=== PATIENT | female | born 1995 | race African-American/Black ===

== ENCOUNTER 2016-03-07 21:04 | Emergency (ER) | payer OTHER ==
[2016-03-07] MEDS ORDERED: AMOXICILLIN 500 MG CAP As Ordered ONE (22:58)
[2016-03-07] MEDS ORDERED: IBUPROFEN 400 MG TAB As Ordered ONE (22:58)
--- NOTE | 2016-03-07 23:06 | EDDOCDS ---
Physician Documentation [facility] Name: Kary Stanley Age: 20 yrs Sex: Female : 1995 Arrival Date: 03/07/2016 Time: 21:04 Bed TR7 Private MD: Other - Complete Info On Cds Disposition: 03/07/16 22:56 Discharged to Home/Self Care. Impression: Streptococcal pharyngitis. - Condition is Stable. - Discharge Instructions: Salt Water Gargle, Strep Throat. - Prescriptions for Amoxicillin 500 mg Oral Capsule - take 1 capsule by ORAL route every 8 hours for 10 days; 30 tablet. - Medication Reconciliation, Work Release Form - 2 day, Local Pharmacy Hours form. - Follow up: Private Physician; When: 2 - 3 days; Reason: Recheck today's complaints, Continuance of care. - Problem is new. - Symptoms have improved. Historical: - Home Meds: 1. none - PMHx: none; - PSHx: none; - Social history: Smoking status: Patient uses tobacco products, current some day smoker. No barriers to communication noted, The patient speaks fluent Malay, Speaks appropriately for age. - Family history: No immediate family members are acutely ill. - : The pt / caregiver states he / she is not on anticoagulants. Home medication list is obtained from the patient. - Exposure Risk Screening:: None identified. 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 3 in. (160.02 cm) (R); Pain 4/10; 23:04 BP 127 / 84; Pulse 101; Resp 17; Temp 98(O); Pulse Ox 99% ; mb9 21:06 Body Mass Index 21.26 (54.43 kg, 160.02 cm) gr2 MDM: 21:56 Strep Screen, Nursing ordered. le 22:56 Amoxicillin 500 mg PO once ordered. ck7 22:56 Ibuprofen 400 mg PO once ordered. ck7 Administered Medications: 23:03 Drug: Amoxicillin 500 mg [amoxicillin 500 mg capsule (1 caps)] Route: PO; mb9 23:03 Drug: Ibuprofen 400 mg [ibuprofen 400 mg tablet (1 tabs)] Route: PO; mb9 Signatures: Cassius Treadwell, RN RN Nida Lamb FNP FNP le Kwaczala, Christopher, GENNA-C RPA-Cck7 Moises Jo RN RN mb9 MTDD
--- NOTE | 2016-03-07 23:06 | EDDOCDS ---
Nurse's Notes [facility] Name: Kary Stanley Age: 20 yrs Sex: Female : 1995 Arrival Date: 03/07/2016 Time: 21:04 Bed TR7 Private MD: Other - Complete Info On Cds Diagnosis: Streptococcal pharyngitis Presentation: 03/07 21:11 Presenting complaint: Patient states: she has had a sore throat for 2 days pain with cz swallowing saliva and food pt states tonsils are enlarged. Risk factors: Stridor is not present. Drooling is not present. Shortness of breath is not present. Cellulitis is not present. Adult Sepsis Screening: The patient does not have new or worsening altered mentation. Patient's respiratory rate is less than 22. Systolic blood pressure is greater than 100. Patient has a qSOFA score of 0- Negative Sepsis Screen. Suicide/Homicide risk assessment- the patient denies having any suicidal and/or homicidal ideations and does not present with any other emotional, behavioral or mental health complaints. Status: The patient is a dependent. Transition of care: patient was not received from another setting of care. 21:11 Acuity: ELE Level 4 cz 21:11 Method Of Arrival: Walkin/Carried/Asstd cz Triage Assessment: 21:12 General: Appears in no apparent distress. Pain: Pain currently is 10 out of 10 on a cz pain scale. HIV screening NA for this visit Offered previously. 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 none - PMHx: none; - PSHx: none; - Social history: Smoking status: Patient uses tobacco products, current some day smoker. No barriers to communication noted, The patient speaks fluent Maltese, Speaks appropriately for age. - Family history: No immediate family members are acutely ill. - : The pt / caregiver states he / she is not on anticoagulants. Home medication list is obtained from the patient. - Exposure Risk Screening:: None identified. Screenin:48 Screening information is obtained from the patient. Fall risk: No risks identified. mb9 Assistance ADL's: requires no assistance with activities of daily living. Abuse/DV Screen: The patient / caregiver reports he/she is: not in a situation that causes fear, pain or injury. Nutritional screening: No deficits noted. Advance Directives: There is no active DNR order. home support is adequate. Assessment: 22:48 General: Appears uncomfortable, Behavior is appropriate for age, cooperative, pleasant. mb9 Pain: Location: throat Pain currently is 7 out of 10 on a pain scale. EENT: Throat is reddened has enlarged tonsils. Respiratory: Airway is patent Respiratory effort is even, unlabored. Vital Signs: 21:06 BP 139 / 80; Pulse 96; Resp 18 S; Temp 98.6(O); Pulse Ox 100% on R/A; Weight 54.43 kg gr2 (R); Height 5 ft. 3 in. (160.02 cm) (R); Pain 4/10; 23:04 BP 127 / 84; Pulse 101; Resp 17; Temp 98(O); Pulse Ox 99% ; mb9 21:06 Body Mass Index 21.26 (54.43 kg, 160.02 cm) gr2 Vitals: 21:06 Log In Time: March 07, 2016 at 21:06. gr2 22:49 Strep Screen is obtained and tested: Positive. Perry DURAN aware. mb9 ED Course: 21:05 Patient visited by Awais Perez. gr2 21:05 Patient moved to Waiting gr2 21:06 Other - Complete Info On Cds is Private Physician. gr2 21:06 Patient visited by Awais Perez. gr2 21:07 Patient moved to Pre RCE gr2 21:12 Triage Initiated cz 22:39 Patient moved to Triage 1 mb9 22:48 Franklyn Worthington [facility]C [facility] ck7 22:48 Hernan Buenrostro DO is Attending Physician. ck7 22:48 Patient visited by Franklyn Worthington RPA-C. ck7 23:04 Patient moved to TR7 [facility] 23:04 The patient / caregiver is instructed regarding the plan of care and ED course. mb9 23:04 No IV's were initiated during this patient's visit. No procedures done that require mb9 assistance. Administered Medications: 23:03 Drug: Amoxicillin 500 mg [amoxicillin 500 mg capsule (1 caps)] Route: PO; mb9 23:03 Drug: Ibuprofen 400 mg [ibuprofen 400 mg tablet (1 tabs)] Route: PO; mb9 Order Results: There are currently no results for this order. Outcome: 22:56 Discharge ordered by Provider. ck7 23:04 Discharge Assessment: Patient awake, alert and oriented x 3. No cognitive and/or mb9 functional deficits noted. Patient verbalized understanding of disposition instructions. patient administered narcotics - no. The following High Risk Discharge criteria are identified: None. Discharged to home ambulatory. Condition: good Condition: stable Condition: improved. Discharge instructions given to patient, Instructed on discharge instructions, follow up and referral plans. medication usage, Demonstrated understanding of instructions, medications, Pt was receptive of discharge instructions/ teaching. Prescriptions given X 1, Work note provided to patient. No special radiology studies were completed. Property :Personal belongings accompany Pt. 23:05 Patient left the ED. mb9 Signatures: Cassius Treadwell, RN RN cz Allie Branch RN RN sls1 Franklyn Worthington, RPA-C RPA-Cck7 Awais Perez gr2 Moises JoRN RN mb9 MTDD
--- NOTE | 2016-03-10 00:06 | EDDOCDS ---
Physician Documentation [facility] Name: Kary Stanley Age: 20 yrs Sex: Female : 1995 Arrival Date: 03/07/2016 Time: 21:04 Bed TR7 Private MD: Other - Complete Info On Cds Disposition: 03/07/16 22:56 Discharged to Home/Self Care. Impression: Streptococcal pharyngitis. - Condition is Stable. - Discharge Instructions: Salt Water Gargle, Strep Throat. - Prescriptions for Amoxicillin 500 mg Oral Capsule - take 1 capsule by ORAL route every 8 hours for 10 days; 30 tablet. - Medication Reconciliation, Work Release Form - 2 day, Local Pharmacy Hours form. - Follow up: Private Physician; When: 2 - 3 days; Reason: Recheck today's complaints, Continuance of care. - Problem is new. - Symptoms have improved. Historical: - Home Meds: 1. none - PMHx: none; - PSHx: none; - Social history: Smoking status: Patient uses tobacco products, current some day smoker. No barriers to communication noted, The patient speaks fluent Pashto, Speaks appropriately for age. - Family history: No immediate family members are acutely ill. - : The pt / caregiver states he / she is not on anticoagulants. Home medication list is obtained from the patient. - Exposure Risk Screening:: None identified. 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 3 in. (160.02 cm) (R); Pain 4/10; 23:04 BP 127 / 84; Pulse 101; Resp 17; Temp 98(O); Pulse Ox 99% ; mb9 21:06 Body Mass Index 21.26 (54.43 kg, 160.02 cm) gr2 MDM: 21:56 Strep Screen, Nursing ordered. le 22:56 Amoxicillin 500 mg PO once ordered. ck7 22:56 Ibuprofen 400 mg PO once ordered. ck7 23:27 [facility] [place] Payment Agreement was scanned into [employer] and attached to record. pm4 03/08 09:21 T-Sheet-- Draft Copy was scanned into [employer] and attached to record. gb Administered Medications: 03/07 23:03 Drug: Amoxicillin 500 mg [amoxicillin 500 mg capsule (1 caps)] Route: PO; mb9 23:03 Drug: Ibuprofen 400 mg [ibuprofen 400 mg tablet (1 tabs)] Route: PO; mb9 Signatures: Cassius Treadwell RN RN cz Saundra Leigh, Reg Reg gb Nida Steen, POLYGRAPH OPERATOR POLYGRAPH OPERATOR Franklyn Hernández, RPA-C RPA-Cck7 Moises Jo RN RN mb9 Mariano Glover, Reg Reg pm4 The chart was reviewed and I authenticate all verbal orders and agree with the evaluation and treatment provided.Attachments: :27 [facility]CLUDES THE [facility] Payment Agreement pm4 03/08 09:21 T-Sheet-- Draft Copy gb Chart Complete MTDD
--- NOTE | 2016-03-10 00:06 | EDDOCDS ---
Nurse's Notes [facility] Name: Kary Stanley Age: 20 yrs Sex: Female : 1995 Arrival Date: 03/07/2016 Time: 21:04 Bed TR7 Private MD: Other - Complete Info On Cds Diagnosis: Streptococcal pharyngitis Presentation: 03/07 21:11 Presenting complaint: Patient states: she has had a sore throat for 2 days pain with cz swallowing saliva and food pt states tonsils are enlarged. Risk factors: Stridor is not present. Drooling is not present. Shortness of breath is not present. Cellulitis is not present. Adult Sepsis Screening: The patient does not have new or worsening altered mentation. Patient's respiratory rate is less than 22. Systolic blood pressure is greater than 100. Patient has a qSOFA score of 0- Negative Sepsis Screen. Suicide/Homicide risk assessment- the patient denies having any suicidal and/or homicidal ideations and does not present with any other emotional, behavioral or mental health complaints. Status: The patient is a dependent. Transition of care: patient was not received from another setting of care. 21:11 Acuity: ELE Level 4 cz 21:11 Method Of Arrival: Walkin/Carried/Asstd cz Triage Assessment: 21:12 General: Appears in no apparent distress. Pain: Pain currently is 10 out of 10 on a cz pain scale. HIV screening NA for this visit Offered previously. 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 none - PMHx: none; - PSHx: none; - Social history: Smoking status: Patient uses tobacco products, current some day smoker. No barriers to communication noted, The patient speaks fluent Andorran, Speaks appropriately for age. - Family history: No immediate family members are acutely ill. - : The pt / caregiver states he / she is not on anticoagulants. Home medication list is obtained from the patient. - Exposure Risk Screening:: None identified. Screenin:48 Screening information is obtained from the patient. Fall risk: No risks identified. mb9 Assistance ADL's: requires no assistance with activities of daily living. Abuse/DV Screen: The patient / caregiver reports he/she is: not in a situation that causes fear, pain or injury. Nutritional screening: No deficits noted. Advance Directives: There is no active DNR order. home support is adequate. Assessment: 22:48 General: Appears uncomfortable, Behavior is appropriate for age, cooperative, pleasant. mb9 Pain: Location: throat Pain currently is 7 out of 10 on a pain scale. EENT: Throat is reddened has enlarged tonsils. Respiratory: Airway is patent Respiratory effort is even, unlabored. Vital Signs: 21:06 BP 139 / 80; Pulse 96; Resp 18 S; Temp 98.6(O); Pulse Ox 100% on R/A; Weight 54.43 kg gr2 (R); Height 5 ft. 3 in. (160.02 cm) (R); Pain 4/10; 23:04 BP 127 / 84; Pulse 101; Resp 17; Temp 98(O); Pulse Ox 99% ; mb9 21:06 Body Mass Index 21.26 (54.43 kg, 160.02 cm) gr2 Vitals: 21:06 Log In Time: March 07, 2016 at 21:06. gr2 22:49 Strep Screen is obtained and tested: Positive. Perry DURAN aware. mb9 ED Course: 21:05 Patient visited by Awais Perez. gr2 21:05 Patient moved to Waiting gr2 21:06 Other - Complete Info On Cds is Private Physician. gr2 21:06 Patient visited by Awais Perez. gr2 21:07 Patient moved to Pre RCE gr2 21:12 Triage Initiated cz 22:39 Patient moved to Triage 1 mb9 22:48 Franklyn Worthington RPA-C is PHCP. ck7 22:48 Hernan Buenrostro DO is Attending Physician. ck7 22:48 Patient visited by Franklyn Worthington RPA-C. ck7 23:04 Patient moved to TR7 [facility] 23:04 The patient / caregiver is instructed regarding the plan of care and ED course. mb9 23:04 No IV's were initiated during this patient's visit. No procedures done that require mb9 assistance. 23:27 [facility] Payment Agreement was scanned into [employer] and attached to record. pm4 03/08 09:21 T-Sheet-- Draft Copy was scanned into [employer] and attached to record. gb Administered Medications: 03/07 23:03 Drug: Amoxicillin 500 mg [amoxicillin 500 mg capsule (1 caps)] Route: PO; mb9 23:03 Drug: Ibuprofen 400 mg [ibuprofen 400 mg tablet (1 tabs)] Route: PO; mb9 Order Results: There are currently no results for this order. Outcome: 22:56 Discharge ordered by Provider. ck7 23:04 Discharge Assessment: Patient awake, alert and oriented x 3. No cognitive and/or mb9 functional deficits noted. Patient verbalized understanding of disposition instructions. patient administered narcotics - no. The following High Risk Discharge criteria are identified: None. Discharged to home ambulatory. Condition: good Condition: stable Condition: improved. Discharge instructions given to patient, Instructed on discharge instructions, follow up and referral plans. medication usage, Demonstrated understanding of instructions, medications, Pt was receptive of discharge instructions/ teaching. Prescriptions given X 1, Work note provided to patient. No special radiology studies were completed. Property :Personal belongings accompany Pt. 23:05 Patient left the ED. mb9 Signatures: Cassius Treadwell, RN RN cz Saundra Leigh, Reg Reg gb Allie Branch, RN RN sls1 Franklyn Worthington, RPA-C RPA-Cck7 Awais Perez gr2 Moises JoRN RN mb9 Mariano Glover, Reg Reg pm4 Chart Complete MTDD
--- NOTE | 2016-03-10 00:06 | EDDOCDS ---
Physician Documentation [facility] Name: Kary Stanley Age: 20 yrs Sex: Female : 1995 Arrival Date: 03/07/2016 Time: 21:04 Bed TR7 Private MD: Other - Complete Info On Cds Disposition: 03/07/16 22:56 Discharged to Home/Self Care. Impression: Streptococcal pharyngitis. - Condition is Stable. - Discharge Instructions: Salt Water Gargle, Strep Throat. - Prescriptions for Amoxicillin 500 mg Oral Capsule - take 1 capsule by ORAL route every 8 hours for 10 days; 30 tablet. - Medication Reconciliation, Work Release Form - 2 day, Local Pharmacy Hours form. - Follow up: Private Physician; When: 2 - 3 days; Reason: Recheck today's complaints, Continuance of care. - Problem is new. - Symptoms have improved. Historical: - Home Meds: 1. none - PMHx: none; - PSHx: none; - Social history: Smoking status: Patient uses tobacco products, current some day smoker. No barriers to communication noted, The patient speaks fluent Sami, Speaks appropriately for age. - Family history: No immediate family members are acutely ill. - : The pt / caregiver states he / she is not on anticoagulants. Home medication list is obtained from the patient. - Exposure Risk Screening:: None identified. 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 3 in. (160.02 cm) (R); Pain 4/10; 23:04 BP 127 / 84; Pulse 101; Resp 17; Temp 98(O); Pulse Ox 99% ; mb9 21:06 Body Mass Index 21.26 (54.43 kg, 160.02 cm) gr2 MDM: 21:56 Strep Screen, Nursing ordered. le 22:56 Amoxicillin 500 mg PO once ordered. ck7 22:56 Ibuprofen 400 mg PO once ordered. ck7 23:27 [facility] [place] Payment Agreement was scanned into [employer] and attached to record. pm4 03/08 09:21 T-Sheet-- Draft Copy was scanned into [employer] and attached to record. gb Administered Medications: 03/07 23:03 Drug: Amoxicillin 500 mg [amoxicillin 500 mg capsule (1 caps)] Route: PO; mb9 23:03 Drug: Ibuprofen 400 mg [ibuprofen 400 mg tablet (1 tabs)] Route: PO; mb9 Signatures: Cassius Treadwell RN RN cz Saundra Leigh, Reg Reg gb Nida Steen, CARROTER CARROTER Franklyn Hernández, RPA-C RPA-Cck7 Moises Jo RN RN mb9 Mariano Glover, Reg Reg pm4 The chart was reviewed and I authenticate all verbal orders and agree with the evaluation and treatment provided.Attachments: :27 [facility] Payment Agreement pm4 03/08 09:21 T-Sheet-- Draft Copy gb Chart Complete MTDD
== END 2016-03-07 23:05 | disposition home or self-care (01) ==
LOC: M ED 21:04
DX: J02.0 Streptococcal pharyngitis (principal); Z72.0 Tobacco use

== ENCOUNTER → 2018-07-18 | Outpatient (REF) | payer MEDICAID, OTHER, SELFPAY ==
[2018-07-18 17:39] LABS: ALBUMIN 3.9 GM/DL (3.2-5.2); ALT/SGPT 16 U/L (12-78); BILIRUBIN,TOTAL 0.4 MG/DL (0.2-1.0); BLOOD UREA NITROGEN 8 MG/DL (7-18); CALCIUM LEVEL 8.5 MG/DL (8.5-10.1); CARBON DIOXIDE LEVEL 23 MEQ/L (21-32); CHLORIDE LEVEL 107 MEQ/L (98-107); CHOLESTEROL LEVEL 133 MG/DL (<200); CHOLESTEROL RISK RATIO 2.418 (<5); CREATININE FOR GFR 0.58 MG/DL (0.55-1.30); FREE T4 1.26 NG/DL (0.76-1.46); GLOMERULAR FILTRATION RATE > 60.0 (>60); GLUCOSE, FASTING 82 MG/DL (70-100); HDL CHOLESTEROL 55 MG/DL (>40); LDL CHOLESTEROL 67 MG/DL (<100); NON-HDL-C 78 MG/DL; POTASSIUM SERUM 3.8 MEQ/L (3.5-5.1); SODIUM LEVEL 139 MEQ/L (136-145); TOTAL 25(OH) VITAMIN D 32.2 NG/ML (30.0-100.0); TOTAL PROTEIN 7.2 GM/DL (6.4-8.2); TRIGLYCERIDES LEVEL 55 MG/DL (<150)
[2018-07-18 17:45] LABS: BASO # 0.1 10^3/uL (0.0-0.2); BASO % 0.6 % (0.0-1.0); EOS # 0.3 10^3/uL (0.0-0.50); EOS % 2.9 % (0.0-3.0); HEMATOCRIT 40.5 % (36.0-47.0); HEMOGLOBIN 13.5 g/dl (12.0-15.5); LYMPH # 3.2 10^3/uL (1.5-6.5); LYMPH % 29.7 % (24.0-44.0); MEAN CORPUSCULAR HGB CONC 33.3 g/dl (32.0-36.5); MONO # 0.8 10^3/uL (0.0-0.8); MONO % 7.3 % (0.0-5.0); NEUTROPHILS # 6.4 10^3/uL (1.8-7.7); NEUTROPHILS % 59.1 % (36.0-66.0); PLATELET COUNT, AUTOMATED 210 10^3/uL (150-450); WHITE BLOOD COUNT 10.9 10^3/uL (4.0-10.0)
== END ==
LOC: M LAB REF 16:32
PROVIDERS: ATTEND Nurse Practitioner Family
DX: Z13.9 Encounter for screening, unspecified (principal)

== ENCOUNTER → 2018-09-18 | Outpatient (REF) | payer SELFPAY ==
[2018-09-18 18:14] LABS: APPEARANCE, URINE HAZY (CLEAR); BACTERIA, URINE AUTO NEGATIVE (NEGATIVE); BILIRUBIN, URINE AUTO NEGATIVE (NEGATIVE); BLOOD, URINE BLOOD NEGATIVE (NEGATIVE); COLOR, URINE YELLOW (YELLOW); GLUCOSE, URINE (UA) AUTO NEGATIVE (NEGATIVE); KETONE, URINE AUTO NEGATIVE (NEGATIVE); LEUKOCYTE ESTERASE, URINE AUTO NEGATIVE (NEGATIVE); MUCUS, URINE SMALL (NEGATIVE); NITRITE, URINE AUTO NEGATIVE (NEGATIVE); PROTEIN, URINE AUTO NEGATIVE (NEGATIVE); RBC, URINE AUTO 2 /HPF (0-3); SPECIFIC GRAVITY URINE AUTO 1.019 (1.002-1.035); SQUAMOUS EPITHELIAL CELL UR AU 8 /HPF (0-6); UROBILINOGEN, URINE AUTO 0.2 mg/dL (0.0-2.0); WBC, URINE AUTO 0 /HPF (0-3)
[2018-09-18 19:44] LABS: CHLAMYDIA DNA AMPLIFICATION NEGATIVE (NEGATIVE); GC DNA AMPLIFICATION NEGATIVE (NEGATIVE)
== END ==
LOC: M LAB REF 17:04
PROVIDERS: ATTEND Nurse Practitioner Family
DX: Z13.9 Encounter for screening, unspecified (principal)

== ENCOUNTER → 2018-10-10 | Outpatient (REF) | payer SELFPAY ==
[2018-10-10 20:06] LABS: CHLAMYDIA DNA AMPLIFICATION POSITIVE (NEGATIVE); GC DNA AMPLIFICATION NEGATIVE (NEGATIVE)
== END ==
LOC: M LAB REF 16:45
PROVIDERS: ATTEND Nurse Practitioner Adult Health
DX: Z11.3 Encounter for screening for infections with a predominantly sexual mode of transmission (principal)

== ENCOUNTER → 2018-11-08 | Outpatient (REF) | payer SELFPAY ==
[2018-11-08 22:14] LABS: CHLAMYDIA DNA AMPLIFICATION NEGATIVE (NEGATIVE); GC DNA AMPLIFICATION NEGATIVE (NEGATIVE)
== END ==
LOC: M LAB REF 18:48
PROVIDERS: ATTEND Nurse Practitioner Family
DX: Z11.3 Encounter for screening for infections with a predominantly sexual mode of transmission (principal)

== ENCOUNTER → 2019-02-13 | Outpatient (REF) | payer SELFPAY ==
[2019-02-13 16:05] LABS: AMORPHOUS SEDIMENT SMALL (NEGATIVE); APPEARANCE, URINE CLOUDY (CLEAR); BACTERIA, URINE AUTO NEGATIVE (NEGATIVE); BILIRUBIN, URINE AUTO NEGATIVE (NEGATIVE); BLOOD, URINE BLOOD NEGATIVE (NEGATIVE); COLOR, URINE YELLOW (YELLOW); GLUCOSE, URINE (UA) AUTO NEGATIVE (NEGATIVE); KETONE, URINE AUTO NEGATIVE (NEGATIVE); LEUKOCYTE ESTERASE, URINE AUTO NEGATIVE (NEGATIVE); MUCUS, URINE SMALL (NEGATIVE); NITRITE, URINE AUTO NEGATIVE (NEGATIVE); PROTEIN, URINE AUTO NEGATIVE (NEGATIVE); RBC, URINE AUTO 2 /HPF (0-3); SPECIFIC GRAVITY URINE AUTO 1.019 (1.002-1.035); SQUAMOUS EPITHELIAL CELL UR AU 4 /HPF (0-6); UROBILINOGEN, URINE AUTO 0.2 mg/dL (0.0-2.0); WBC, URINE AUTO 2 /HPF (0-3)
[2019-02-13 17:27] LABS: CHLAMYDIA DNA AMPLIFICATION NEGATIVE (NEGATIVE); GC DNA AMPLIFICATION NEGATIVE (NEGATIVE)
== END ==
LOC: M LAB REF 15:47
PROVIDERS: ATTEND Nurse Practitioner Family
DX: Z11.3 Encounter for screening for infections with a predominantly sexual mode of transmission (principal)

== ENCOUNTER 2019-04-01 10:06 | Emergency (ER) | payer MEDICAID, SELFPAY ==
[~2019-04-01] VITALS: Ht 160 cm; Wt 55.5 kg
[2019-04-01] MEDS ORDERED: PREN29TA4 PO (11:04)
[2019-04-01 11:31] LABS: HEMATOCRIT 39.5 % (36.0-47.0); MEAN CORPUSCULAR HEMOGLOBIN 29.7 pg (27.0-33.0); MEAN CORPUSCULAR HGB CONC 32.9 g/dl (32.0-36.5); MEAN CORPUSCULAR VOLUME 90.4 fl (80.0-96.0); PLATELET COUNT, AUTOMATED 209 10^3/uL (150-450); RED BLOOD COUNT 4.37 10^6/uL (4.00-5.40); WHITE BLOOD COUNT 8.1 10^3/uL (4.0-10.0)
[2019-04-01 11:36] LABS: APPEARANCE, URINE CLEAR (CLEAR); BACTERIA, URINE AUTO NEGATIVE (NEGATIVE); BILIRUBIN, URINE AUTO NEGATIVE (NEGATIVE); BLOOD, URINE BLOOD NEGATIVE (NEGATIVE); COLOR, URINE STRAW (YELLOW); GLUCOSE, URINE (UA) AUTO NEGATIVE (NEGATIVE); KETONE, URINE AUTO NEGATIVE (NEGATIVE); LEUKOCYTE ESTERASE, URINE AUTO NEGATIVE (NEGATIVE); NITRITE, URINE AUTO NEGATIVE (NEGATIVE); PROTEIN, URINE AUTO NEGATIVE (NEGATIVE); RBC, URINE AUTO 1 /HPF (0-3); SPECIFIC GRAVITY URINE AUTO 1.004 (1.002-1.035); SQUAMOUS EPITHELIAL CELL UR AU 0 /HPF (0-6); UROBILINOGEN, URINE AUTO 0.2 mg/dL (0.0-2.0); WBC, URINE AUTO 0 /HPF (0-3)
--- NOTE | 2019-04-01 12:25 | REP ---
Clinical: Vaginal bleeding for dating and viability. Technique: Transabdominal and transvaginal first trimester obstetrical ultrasound with color Doppler evaluation. Findings: Uterus measures 9.1 x 5.1 x 6.4 cm. A gestational sac with yolk sac is identified extending along the left fundal region of the uterus with 4 mm of intervening myometrial thickness. Mean sac diameter corresponds to 6 weeks 0 days gestational age. The bilateral maternal ovaries are normal in appearance and vascularity. A 2.2 cm right corpus luteal cyst is identified. Impression: Left fundal gestational sac with yolk sac but no pole identified. Correlation with serial HCG levels and repeat ultrasound evaluation. Differential diagnosis includes spontaneous as well as early . Electronically Signed by Garret Oden MD 04/01/2019 12:17 P
[2019-04-01 13:19] LABS: CHLAMYDIA DNA AMPLIFICATION NEGATIVE (NEGATIVE); GC DNA AMPLIFICATION NEGATIVE (NEGATIVE)
[2019-04-01 13:33] VITALS: BP 132/61
== END 2019-04-01 13:34 | disposition home or self-care (01) ==
LOC: M ED 10:06
DX: O20.0 Threatened abortion (principal); Z3A.01 Less than 8 weeks gestation of pregnancy

== ENCOUNTER → 2019-04-03 | Outpatient (CLI) | payer MEDICAID, SELFPAY ==
[~2019-04-03] MED LIST: PREN29TA4 PO
== END ==
LOC: M LAB 10:58
PROVIDERS: ATTEND Physician Assistant Medical
DX: O20.9 Hemorrhage in early pregnancy, unspecified (principal)

== ENCOUNTER → 2019-04-25 | Outpatient (CLI) | payer MEDICAID, OTHER ==
--- NOTE | 2019-04-25 14:56 | REP ---
FIRST TRIMESTER ULTRASOUND: Real-time sonographic evaluation of the gravid uterus performed. There is a single living intrauterine gestation. The estimated gestational age is 9 weeks 1 day based on a crown-rump length of 24 mm, EDC 11/27/2019. heart rate is 163 beats per minute. There is no subchorionic hemorrhage. Ovaries are normal in appearance with no adnexal abnormality. Electronically Signed by Malik Bonilla MD 04/29/2019 04:01 P
== END ==
LOC: M RAD 12:44
PROVIDERS: ATTEND Obstetrics & Gynecology
DX: O36.80X0 Pregnancy with inconclusive fetal viability, not applicable or unspecified (principal)

== ENCOUNTER → 2019-05-30 | Outpatient (REF) | payer OTHER ==
[2019-05-30 12:39] LABS: HEMATOCRIT 36.9 % (36.0-47.0); HEMOGLOBIN 12.2 g/dl (12.0-15.5); MEAN CORPUSCULAR HEMOGLOBIN 29.6 pg (27.0-33.0); MEAN CORPUSCULAR HGB CONC 33.1 g/dl (32.0-36.5); MEAN CORPUSCULAR VOLUME 89.6 fl (80.0-96.0); PLATELET COUNT, AUTOMATED 217 10^3/uL (150-450); RED BLOOD COUNT 4.12 10^6/uL (4.00-5.40); WHITE BLOOD COUNT 11.9 10^3/uL (4.0-10.0)
[2019-05-30 13:50] LABS: HEPATITIS C VIRUS ABY INDEX 0.1 INDEX (<0.8); HIV 1&2 SCREEN CENTAUR NEGATIVE (NEGATIVE); RUBELLA IgG QUALITATIVE IMMUNE (IMMUNE)
== END ==
LOC: M LAB REF 12:14
PROVIDERS: ATTEND Obstetrics & Gynecology
DX: Z36.89 Encounter for other specified antenatal screening (principal)

== ENCOUNTER → 2019-06-27 | Outpatient (REF) | payer OTHER | LOC: M LAB REF 12:13 | PROVIDERS: ATTEND Obstetrics & Gynecology | DX: Z34.02 Encounter for supervision of normal first pregnancy, second trimester (principal) ==

== ENCOUNTER 2019-12-23 16:01 | Emergency (ER) | payer OTHER ==
[~2019-12-23] VITALS: Ht 160 cm; Wt 56.5 kg
[2019-12-23 16:02] VITALS: BP 130/82
== END 2019-12-23 17:30 | disposition home or self-care (01) ==
LOC: M ED 16:01
DX: F32.9 Major depressive disorder, single episode, unspecified (principal); F17.200 Nicotine dependence, unspecified, uncomplicated

== ENCOUNTER → 2020-07-05 | Outpatient (REF) | payer OTHER ==
[2020-07-05 17:48] LABS: HEMATOCRIT 36.9 % (36.0-47.0); HEMOGLOBIN 11.9 g/dl (12.0-15.5); MEAN CORPUSCULAR HEMOGLOBIN 29.2 pg (27.0-33.0); MEAN CORPUSCULAR HGB CONC 32.2 g/dl (32.0-36.5); MEAN CORPUSCULAR VOLUME 90.4 fl (80.0-96.0); PLATELET COUNT, AUTOMATED 233 10^3/uL (150-450); RED BLOOD COUNT 4.08 10^6/uL (4.00-5.40); WHITE BLOOD COUNT 11.7 10^3/uL (4.0-10.0)
[2020-07-05 19:02] LABS: HIV 1&2 SCREEN CENTAUR NEGATIVE (NEGATIVE)
[2020-07-05 19:07] LABS: CHLAMYDIA DNA AMPLIFICATION NEGATIVE (NEGATIVE); GC DNA AMPLIFICATION NEGATIVE (NEGATIVE)
== END ==
LOC: M PLALAB 14:51
PROVIDERS: ATTEND Advanced Practice Midwife
DX: O09.291 Supervision of pregnancy with other poor reproductive or obstetric history, first trimester (principal); Z3A.00 Weeks of gestation of pregnancy not specified

== ENCOUNTER 2020-07-10 19:04 | Emergency (ER) | payer OTHER ==
[2020-07-10] MEDS ORDERED: NS 1,000 ML IV ONE (19:25)
[2020-07-10 20:11] LABS: BASO % 0.4 % (0.0-1.0); EOS # 0.4 10^3/uL (0.0-0.5); EOS % 3.6 % (0.0-3.0); HEMATOCRIT 30.9 % (36.0-47.0); HEMOGLOBIN 10.1 g/dl (12.0-15.5); LYMPH # 2.7 10^3/uL (1.5-5.0); LYMPH % 27.4 % (24.0-44.0); MEAN CORPUSCULAR HEMOGLOBIN 29.8 pg (27.0-33.0); MEAN CORPUSCULAR HGB CONC 32.7 g/dl (32.0-36.5); MEAN CORPUSCULAR VOLUME 91.2 fl (80.0-96.0); MONO # 0.9 10^3/uL (0.0-0.8); MONO % 9.1 % (2.0-8.0); NEUTROPHILS # 5.8 10^3/uL (1.5-8.5); NEUTROPHILS % 58.9 % (36.0-66.0); PLATELET COUNT, AUTOMATED 180 10^3/uL (150-450); RED BLOOD COUNT 3.39 10^6/uL (4.00-5.40); WHITE BLOOD COUNT 9.8 10^3/uL (4.0-10.0)
[2020-07-10 20:46] LABS: BLOOD UREA NITROGEN 5 MG/DL (7-18); CALCIUM LEVEL 7.6 MG/DL (8.5-10.1); CARBON DIOXIDE LEVEL 23 MEQ/L (21-32); CHLORIDE LEVEL 108 MEQ/L (98-107); CREATININE FOR GFR 0.38 MG/DL (0.55-1.30); GLOMERULAR FILTRATION RATE > 60.0 (>60); GLUCOSE, FASTING 72 MG/DL (70-100); POTASSIUM SERUM 3.4 MEQ/L (3.5-5.1); SODIUM LEVEL 138 MEQ/L (136-145)
[2020-07-10 21:01] LABS: ALBUMIN 3.1 GM/DL (3.2-5.2); ALT/SGPT 12 U/L (12-78); BILIRUBIN,DIRECT 0.1 MG/DL (0.0-0.2); BILIRUBIN,TOTAL 0.4 MG/DL (0.2-1.0); CK-MB VALUE MASS < 1.0 NG/ML (<3.6); CPK CREATINE PHOSPHOKINASE 59 U/L (26-192); HCG, SERUM QUANTITATIVE 35067 MIU/ML; MB/CK RELATIVE INDEX 1.69 (< OR =4); TOTAL PROTEIN 5.9 GM/DL (6.4-8.2); TROPONIN I < 0.02 NG/ML (< 0.10)
--- NOTE | 2020-07-10 21:53 | REPVR ---
PROCEDURE INFORMATION: Exam: US First Trimester, Transabdominal Exam date and time: 07/10/2020 8:16 PM Age: 24 years old Clinical indication: Condition or disease; Lmp or gestational age (weeks): 11 weeks 1 day; Other: Syncope, high risk ; 2nd ; ; Additional info: Syncope , check fhr TECHNIQUE: Imaging protocol: Real-time transabdominal obstetrical ultrasound of the maternal pelvis and a first trimester , less than 14 weeks 0 days, with image documentation. COMPARISON: No relevant prior studies available. FINDINGS: Gestation: Transabdominally, there is a single intrauterine . Embryonic/ heart rate: cardiac activity noted at a rate of 163 bpm. Placenta: Posterior. No hemorrhage. Amniotic fluid: Amniotic fluid is normal for gestational age. BIOMETRY: Hauser-Rump length: The pole has a crown-rump length measurement of 4.46 cm for menstrual age of 11 weeks and 3 days. MATERNAL: Uterus: Unremarkable. Cervix: Not well seen. Right adnexa: Right ovary not seen as a separate structure.. Left adnexa: Left ovary measures 4.1 x 2.8 by 2.9 cm and contains a cyst with a thick hypervascular rim. This represents a corpus luteum cyst and measures 2.3 cm in diameter. Intraperitoneal space: No intraperitoneal free fluid. IMPRESSION: 1. Single live intrauterine with an estimated menstrual age of 11 weeks and 2 days. Expected date of delivery 01/27/2021. Electronically signed by: Monae Bang On 07/10/2020 21:53:28 PM
[2020-07-10 22:33] VITALS: BP 94/54
--- NOTE | 2020-07-11 20:16 | ECGEPIP ---
[facility] - ED Test Date: 2020-07-10 Pat Name: NIKO PEREIRA Department: Room: - Gender: Female Track Layer Head: : 1995 Requested By: GURDEEP Marie Order Number: [id number] Reading MD: Zach Crandall Measurements Intervals Douglas Rate: 66 P: 59 AK: 166 QRS: 84 QRSD: 72 T: 35 QT: 430 QTc: 450 Interpretive Statements Normal sinus rhythm POOR R WAVE PROGRESSION NSTTW ABNORMALITY(S) NO PRIORS FOR COMPARISON Electronically Signed on 07-11-2020 20:16:32 EDT by Zach Crandall
== END 2020-07-10 22:36 | disposition home or self-care (01) ==
LOC: M ED 19:04
DX: R55 Syncope and collapse (principal); O99.331 Smoking (tobacco) complicating pregnancy, first trimester; F17.210 Nicotine dependence, cigarettes, uncomplicated; Z77.098 Contact with and (suspected) exposure to other hazardous, chiefly nonmedicinal, chemicals; Z3A.11 11 weeks gestation of pregnancy

== ENCOUNTER → 2020-09-02 | Outpatient (CLI) | payer OTHER ==
--- NOTE | 2020-09-02 15:59 | REP ---
INDICATION: PREG LEVEL II ANATOMY. COMPARISON: None. TECHNIQUE: Transabdominal FINDINGS: Multiple ultrasonographic images of the gravid uterus shows a single living intrauterine gestation in the breech presentation. Doppler interrogation of the heart shows a heart rate of 150 beats per minute. The subjective amniotic fluid volume is within normal limits. The placenta is posterior and not low-lying. The cervix measures 4.9 cm length and is closed. BPD: 4.1 cm 18 weeks 4 days HC: 15.5 cm 18 weeks 3 days AC: 12.9 cm 18 weeks 3 days FL: 2.9 cm 18 weeks 5 days The estimated weight is 246 g which is at the 28th percentile for an 18 week 6 day gestational age. anatomical structures seen to be unremarkable are as follows: Thalami, cavum septum pellucidum, cerebellum, cisterna magna, cerebral ventricles, spine, kidneys, urinary bladder, stomach, cord insertion, three-vessel umbilical cord, four-chamber heart, right and left ventricular outflow tracts, upper and lower extremities, and upper lip IMPRESSION: Single living intrauterine gestation as described above with an estimated gestational age of 18 weeks 4 days via composite criteria and an estimated date of delivery of 01/30/2021 by today's exam. No anomalies were detected. An incidental intracardiac echogenic focus was identified likely representing chordae tendineae. Consider 2 week follow-up. <Electronically signed by Colt Thornton > 09/02/20 [id number]
== END ==
LOC: M RAD 12:10
PROVIDERS: ATTEND Advanced Practice Midwife
DX: O09.292 Supervision of pregnancy with other poor reproductive or obstetric history, second trimester (principal)

== ENCOUNTER → 2020-11-15 | Outpatient (CLI) | payer OTHER ==
[2020-11-15 15:28] LABS: HEMOGLOBIN 10.7 g/dl (12.0-15.5); MEAN CORPUSCULAR HEMOGLOBIN 29.1 pg (27.0-33.0); MEAN CORPUSCULAR HGB CONC 32.4 g/dl (32.0-36.5); MEAN CORPUSCULAR VOLUME 89.7 fl (80.0-96.0); PLATELET COUNT, AUTOMATED 223 10^3/uL (150-450); RED BLOOD COUNT 3.68 10^6/uL (4.00-5.40); WHITE BLOOD COUNT 13.8 10^3/uL (4.0-10.0)
== END ==
LOC: M LAB 13:48
PROVIDERS: ATTEND Advanced Practice Midwife
DX: O09.292 Supervision of pregnancy with other poor reproductive or obstetric history, second trimester (principal); Z3A.00 Weeks of gestation of pregnancy not specified

== ENCOUNTER → 2020-11-24 | Outpatient (CLI) | payer OTHER | LOC: M WHC 16:02 | PROVIDERS: ATTEND Advanced Practice Midwife | DX: O09.293 Supervision of pregnancy with other poor reproductive or obstetric history, third trimester (principal); Z3A.00 Weeks of gestation of pregnancy not specified ==

== ENCOUNTER → 2020-12-10 | Outpatient (CLI) | payer OTHER ==
--- NOTE | 2020-12-12 07:11 | REP ---
INDICATION: GROWTH HIGH RISK FOLLOW UP COMPARISON: 09/02/2020 TECHNIQUE: Transabdominal obstetrical ultrasound with color Doppler evaluation. FINDINGS: Examination demonstrates a single live intrauterine in cephalic presentation. motion is identified by technologist. Placenta is noted posterior and grade 2 without evidence for placenta previa or abruption. Amniotic fluid volume is upper normal range. Cervix measures 4.1 cm in length and appears closed.. Selected gestational age: 33 weeks 0 days with AN 01/28/2021. Gestational age by current measurements 33 weeks 0 days with AN 01/28/2021. FHR equals 158 beats per minute. BPD: 8.3 cm at 33 weeks 2 days HC: 30.3 cm at 33 weeks 5 days AC: 28.1 cm at 32 weeks 1 day FL: 6.4 cm at 33 weeks 1 day HL: 5.7 cm at 33 weeks 0 days HC/AC: 1.08 Estimated weight 2031 grams (32ndpercentile). JAYLEN: 24.0 cm (8.3-24.5) IMPRESSION: 1. Single live intrauterine in cephalic presentation demonstrating appropriate estimated weight and growth. 2. Amniotic fluid volume is borderline polyhydramnios. No obvious anatomical abnormality identified <Electronically signed by Garret Oden > 12/12/20 [id number]
== END ==
LOC: M WHC 11:22
PROVIDERS: ATTEND Advanced Practice Midwife
DX: O09.293 Supervision of pregnancy with other poor reproductive or obstetric history, third trimester (principal); O40.3XX0 Polyhydramnios, third trimester, not applicable or unspecified; Z3A.33 33 weeks gestation of pregnancy

== ENCOUNTER → 2020-12-22 | Outpatient (REF) | payer OTHER | LOC: M SFHCWAGY 13:03 | PROVIDERS: ATTEND Advanced Practice Midwife | DX: O09.293 Supervision of pregnancy with other poor reproductive or obstetric history, third trimester (principal) ==

== ENCOUNTER → 2021-01-03 | Outpatient (CLI) | payer OTHER ==
--- NOTE | 2021-01-03 11:53 | REP ---
INDICATION: 36 WEEKS GROWTH COMPARISON: 12/10/2020 TECHNIQUE: Transabdominal obstetrical ultrasound with color Doppler evaluation. FINDINGS: Examination demonstrates a single live intrauterine in cephalic presentation. motion is identified by technologist. Placenta is noted posterior and grade 3 without evidence for placenta previa or abruption. Amniotic fluid volume is normal. Cervix measures 5.1 cm in length and appears closed.. Selected gestational age: 36 weeks 3 days with AN 01/28/2021. Gestational age by current measurements 34 weeks 6 days with AN 02/08/2021. FHR equals 124 beats per minute. BPD: 8.7 cm at 34 weeks 6 days HC: 30.8 cm at 34 weeks 3 days AC: 31.7 cm at 35 weeks 4 days FL: 6.7 cm at 34 weeks 5 days HL: 6.0 cm at 35 weeks 0 days HC/AC: 0.97 Estimated weight 2604 grams (21stpercentile based on selected age at 36 weeks 3 days). JAYLEN: 13.7 cm Umbilical artery SD ratio: 2.35 (1.62-3.48) IMPRESSION: Single live advanced gestation in cephalic presentation. Estimated weight within normal limits. <Electronically signed by Garret Oden > 01/03/21 [id number]
== END ==
LOC: M WHC 10:08
PROVIDERS: ATTEND Advanced Practice Midwife
DX: O09.293 Supervision of pregnancy with other poor reproductive or obstetric history, third trimester (principal)

== ENCOUNTER 2021-01-10 07:51 | Inpatient (IN) | payer OTHER ==
[2021-01-10] VITALS (15 sets, daily range): BP systolic 107–135; BP diastolic 56–86
[~2021-01-10] VITALS: Ht 160 cm; Wt 68.1 kg
--- OUTSIDE RECORDS SUMMARY | 2021-01-10 07:56 | CCD ---
Author Author [facility] Organization [facility] Address Unknown Phone Unavailable Care Team Providers Care Tempering Machine Operator Name Role Phone Bonifacio, Gabrielle BLISS PRESS OPERATOR BLISS PRESS OPERATOR Unavailable Unavailable Chance PERKINS Unavailable Unavailable Bonifacio, A Gabrielle BLISS PRESS OPERATOR Unavailable Unavailable Bonifacio, A Gabrielle BLISS PRESS OPERATOR Unavailable Unavailable Bonifacio, A Gabrielle BLISS PRESS OPERATOR Unavailable Unavailable Bonifacio, A Gabrielle BLISS PRESS OPERATOR Unavailable Unavailable Bonifacio, A Gabrielle BLISS PRESS OPERATOR Unavailable Unavailable Bonifacio, A Gabrielle BLISS PRESS OPERATOR Unavailable Unavailable Bonifacio, A Gabrielle BLISS PRESS OPERATOR Unavailable Unavailable Bonifacio, A Gabrielle BLISS PRESS OPERATOR Unavailable Unavailable Bonifacio, A Gabrielle BLISS PRESS OPERATOR Unavailable Unavailable Bonifacio, A Gabrielle BLISS PRESS OPERATOR Unavailable Unavailable Bonifacio, A Gabrielle BLISS PRESS OPERATOR Unavailable Unavailable Bonifacio, A Gabrielle BLISS PRESS OPERATOR Unavailable Unavailable Bonifacio, A Gabrielle BLISS PRESS OPERATOR Unavailable Unavailable Bonifacio, A Gabrielle BLISS PRESS OPERATOR Unavailable Unavailable Bonifacio, A Gabrielle BLISS PRESS OPERATOR Unavailable Unavailable [place]osa, A Gabrielle BLISS PRESS OPERATOR Unavailable Unavailable [place], A Gabrielle BLISS PRESS OPERATOR Unavailable Unavailable Bonifacio, A Gabrielle BLISS PRESS OPERATOR Unavailable Unavailable Bonifacio, A Gabrielle BLISS PRESS OPERATOR Unavailable Unavailable Bonifacio, A Gabrielle BLISS PRESS OPERATOR Unavailable Unavailable Bonifacio, A Gabrielle BLISS PRESS OPERATOR Unavailable Unavailable Bonifacio, A Gabrielle BLISS PRESS OPERATOR Unavailable Unavailable Bonifacio, A Gabrielle BLISS PRESS OPERATOR Unavailable Unavailable [place], A Gabrielle BLISS PRESS OPERATOR Unavailable Unavailable [place], A Gabrielle BLISS PRESS OPERATOR Unavailable Unavailable [place], A Gabrielle BLISS PRESS OPERATOR Unavailable Unavailable Bonifacio, A Gabrielle BLISS PRESS OPERATOR Unavailable Unavailable Bonifacio, A Gabrielle BLISS PRESS OPERATOR Unavailable Unavailable Bonifacio, A Gabrielle BLISS PRESS OPERATOR Unavailable Unavailable Bonifacio, A Gabrielle BLISS PRESS OPERATOR Unavailable Unavailable Bonifacio, A Gabrielle BLISS PRESS OPERATOR Unavailable Unavailable FRIEDA, F EUFEMIA MD Unavailable Unavailable FRIEDA, F EUFEMIA MD Unavailable Unavailable FRIEDA, F EUFEMIA MD Unavailable Unavailable FRIEDA, F EUFEMIA MD Unavailable Unavailable FRIEDA, F EUFEMIA MD Unavailable Unavailable FRIEDA, F EUFEMIA MD Unavailable Unavailable FRIEDA, F EUFEMIA MD Unavailable Unavailable FRIEDA, F EUFEMIA MD Unavailable Unavailable FRIEDA, F EUFEMIA MD Unavailable Unavailable FRIEDA, F EUFEMIA MD Unavailable Unavailable FRIEDA, F EUFEMIA MD Unavailable Unavailable FRIEDA, F EUFEMIA MD Unavailable Unavailable FRIEDA, F EUFEMIA MD Unavailable Unavailable FRIEDA, F EUFEMIA MD Unavailable Unavailable FRIEDA, F EUFEMIA MD Unavailable Unavailable FRIEDA, F EUFEMIA MD Unavailable Unavailable FRIEDA, F EUFEMIA MD Unavailable Unavailable FRIEDA, F EUFEMIA MD Unavailable Unavailable FRIEDA, F EUFEMIA MD Unavailable Unavailable FRIEDA, F EUFEMIA MD Unavailable Unavailable FRIEDA, F EUFEMIA MD Unavailable Unavailable FRIEDA, F EUFEMIA MD Unavailable Unavailable FRIEDA, F EUFEMIA MD Unavailable Unavailable FRIEDA, F EUFEMIA MD Unavailable Unavailable FRIEDA, F EUFEMIA MD Unavailable Unavailable FRIEDA, F EUFEMIA MD Unavailable Unavailable FRIEDA, F EUFEMIA MD Unavailable Unavailable FRIEDA, F EUFEMIA MD Unavailable Unavailable FRIEDA, F EUFEMIA MD Unavailable Unavailable FRIEDA, F EUFEMIA MD Unavailable Unavailable FRIEDA, F EUFEMIA MD Unavailable Unavailable Roberto Llanes Unavailable [phone] Roberto Llanes Unavailable [phone] Roberto Llanes Unavailable [phone] Roberto Llanes Unavailable [phone] Roberto Llaens Unavailable [phone] Roberto Llanes Unavailable [phone] Scordo, M Ibis PA Unavailable Unavailable Scordo, M Ibis PA Unavailable Unavailable Scordo, M Ibis PA Unavailable Unavailable Scordo, M Ibis PA Unavailable Unavailable Scordo, M Ibis PA Unavailable Unavailable Scordo, M Ibis PA Unavailable Unavailable Scordo, M Ibis PA Unavailable Unavailable Scordo, M Ibis PA Unavailable Unavailable Scordo, M Ibis PA Unavailable Unavailable Scordo, M Ibis PA Unavailable Unavailable Scordo, M Ibis PA Unavailable Unavailable Scordo, M Ibis PA Unavailable Unavailable Scordo, M Ibis PA Unavailable Unavailable Scordo, M Ibis PA Unavailable Unavailable Scordo, M Ibis PA Unavailable Unavailable Scordo, M Ibis PA Unavailable Unavailable Scordo, M Ibis PA Unavailable Unavailable Scordo, M Ibis PA Unavailable Unavailable Scordo, M Ibis PA Unavailable Unavailable Scordo, M Ibis PA Unavailable Unavailable Scordo, M Ibis PA Unavailable Unavailable Scordo, M Ibis PA Unavailable Unavailable Scordo, M Ibis PA Unavailable Unavailable Scordo, M Ibis PA Unavailable Unavailable Scordo, M Ibis PA Unavailable Unavailable Scordo, M Ibis PA Unavailable Unavailable Scordo, M Ibis PA Unavailable Unavailable Scordo, M Ibis PA Unavailable Unavailable Scordo, M Ibis PA Unavailable Unavailable Scordo, M Ibis PA Unavailable Unavailable Scordo, M Ibis PA Unavailable Unavailable Scordo, M Ibis PA Unavailable Unavailable Scordo, M Ibis PA Unavailable Unavailable Scordo, M Ibis PA Unavailable Unavailable Scordo, M Ibis PA Unavailable Unavailable Scordo, M Ibis PA Unavailable Unavailable Scordo, M Ibis PA Unavailable Unavailable Scordo, M Ibis PA Unavailable Unavailable Scordo, M Ibis PA Unavailable Unavailable Scordo, M Ibis PA Unavailable Unavailable Scordo, M Ibis PA Unavailable Unavailable Scordo, M Ibis PA Unavailable Unavailable Scordo, Gerard Baumann PA Unavailable Unavailable Scordo, Gerard Baumann PA Unavailable Unavailable Scordo, M Ibis PA Unavailable Unavailable Scordo, M Ibis PA Unavailable Unavailable Scordo, M Ibis PA Unavailable Unavailable Re-disclosure Warning The records that you are about to access may contain information from federally-assisted alcohol or drug abuse programs. If such information is present, then the following federally mandated warning applies: This information has been disclosed to you from records protected by federal confidentiality rules (42 CFR part 2). The federal rules prohibit you from making any further disclosure of this information unless further disclosure is expressly permitted by the written consent of the person to whom it pertains or as otherwise permitted by 42 CFR part 2. A general authorization for the release of medical or other information is NOT sufficient for this purpose. The Federal rules restrict any use of the information to criminally investigate or prosecute any alcohol or drug abuse patient.The records that you are about to access may contain highly sensitive health information, the redisclosure of which is protected by Article 27-F of the [facility] Public Health law. If you continue you may have access to information: Regarding HIV / AIDS; Provided by facilities licensed or operated by the [facility] Office of Mental Health; or Provided by the [facility] Office for People With Developmental Disabilities. If such information is present, then the following [facility] mandated warning applies: This information has been disclosed to you from confidential records which are protected by state law. State law prohibits you from making any further disclosure of this information without the specific written consent of the person to whom it pertains, or as otherwise permitted by law. Any unauthorized further disclosure in violation of state law may result in a fine or long term sentence or both. A general authorization for the release of medical or other information is NOT sufficient authorization for further disc losure. Allergies and Adverse Reactions Type Description Substance Reaction Status Data Source(s ) No Known Drug Allergies No Known Drug Allergies [facility] Family History Family Member Name Family Member Gender Family Member Status Date o f Status Description Data Source(s) Unknown Unknown Problem MEDENT ([facility]) Encounters Encounter Providers Location Date Indications Data Source(s ) ( ESTOB) enter Est OB [address] [place] [address] 01/05/2021 12:00:00 AM EST eCW1 ([facility]) Unknown [address] [facility] [address] 01/03/2021 12:00:00 AM EST eCW1 ([facility]) (WC COB) [facility] Complicated OB [address] [place] [address] 12/29/2020 12:00:00 AM EST eCW1 ([facility]) (WC ESTOB) [facility] Est OB [address] [place] [address] 12/16/2020 12:00:00 AM EDT eCW1 ([facility]) Unknown [address] [facility] [address] 12/16/2020 12:00:00 AM EDT eCW1 ([facility]) (WC COB) [facility] Complicated OB [address] [place] [address] 12/10/2020 12:00:00 AM EDT eCW1 ([facility]) Unknown [address] [facility] [address] 12/10/2020 12:00:00 AM EDT eCW1 ([facility]) (WC ESTOB) [facility] Est OB [address] [place] [address] 11/26/2020 12:00:00 AM EDT eCW1 ([facility]) Unknown [address] [facility] [address] 11/26/2020 12:00:00 AM EDT eCW1 ([facility]) (WC ESTOB) [facility] Est OB [address] [place] [address] 11/10/2020 12:00:00 AM EDT eCW1 ([facility]) Unknown [address] [facility] [place] [address] 10/15/2020 12:00:00 AM EDT eCW1 ([facility]) (WC ESTOB) [facility] Est OB [address] [place] [address] 10/13/2020 12:00:00 AM EDT eCW1 ([facility]) Outpatient Attender: Roberto Llanes 10/12 08:12:54 PM EDT - 10/12/2020 09:13:36 PM EDT DocuTap ([facility] ) (WC ESTOB) [facility] Est OB [address] [place] [address] 09/13/2020 12:00:00 AM EDT eCW1 ([facility]) ( ESTOB) [facility] Est OB [address] [place] [address] 08/05/2020 12:00:00 AM EDT eCW1 ([facility]) ( ESTOB) [facility] Est OB [address] [place] [address] 07/08/2020 12:00:00 AM EDT eCW1 ([facility]) ( ESTOB) [facility] OB [address] [place] [address] 06/25/2020 12:00:00 AM EDT eCW1 ([facility]) ( ESTOB) [facility] OB [address] [place] [address] 06/11/2020 12:00:00 AM EDT eCW1 ([facility]) Outpatient [facility] 01/01/2020 10:32:01 A M EST [facility] JERRICA BellamyC: [address] [place] [phone], Ph. Attender: Ibis FERRARI - [facility] Medical 01/01/2020 12:00:00 AM EST FLO ([facility]) Outpatient Attender: EUFEMIA MALAVE MDConsultant: Gabrielle PADRON 11/11/2019 05:16:55 PM EDT - 11/11/2019 06:00:00 PM EDT [facility] Patient discharged. Inpatient Attender: CHETAN PERKINSConsultant: Gabrielle PADRON 11/10/2019 07:13:00 PM EDT - 11/11/2019 02:13:00 AM EDT [facility] Patient discharged. Immunizations Vaccine Date Status Description Data Source(s) New in 2011. IIV4 12/02/2020 10:28:00 AM EDT completed eCW1 ([facility]) New in 2011. IIV4 12/02/2020 10:28:00 AM EDT completed eCW1 ([facility]) New in 2011. IIV4 12/02/2020 10:28:00 AM EDT completed eCW1 ([facility]) New in 2011. IIV4 12/02/2020 10:28:00 AM EDT completed eCW1 ([facility]) New in 2011. IIV4 12/02/2020 10:28:00 AM EDT completed eCW1 ([facility]) New in 2011. IIV4 12/02/2020 10:28:00 AM EDT completed eCW1 ([facility]) New in 2011. IIV4 12/02/2020 10:28:00 AM EDT completed eCW1 ([facility]) 11/26/2020 08:12:00 AM EDT completed e CW1 ([facility]) 11/26/2020 08:12:00 AM EDT completed e CW1 ([facility]) 11/26/2020 08:12:00 AM EDT completed e CW1 ([facility]) 11/26/2020 08:12:00 AM EDT completed e CW1 ([facility]) Medications Medication Brand Name Start Date Product Form Dose Route Admi nistrative Instructions Pharmacy Instructions Status Indications Reaction Description Data Source(s) terconazole 4 MG/ML Vaginal Cream Terconazole 0.4 % Terconaz ole 0.4 % 08/05/2020 12:00:00 AM EDT active Terconaz ole 0.4 % eCW1 ([facility]) terconazole 4 MG/ML Vaginal Cream Terconazole 0.4 % Terconaz ole 0.4 % 08/05/2020 12:00:00 AM EDT active Terconaz ole 0.4 % eCW1 ([facility]) terconazole 4 MG/ML Vaginal Cream Terconazole 0.4 % Terconaz ole 0.4 % 08/05/2020 12:00:00 AM EDT suspended Terco nazole 0.4 % eCW1 ([facility]) terconazole 4 MG/ML Vaginal Cream Terconazole 0.4 % Terconaz ole 0.4 % 08/05/2020 12:00:00 AM EDT active Terconaz ole 0.4 % eCW1 ([facility]) terconazole 4 MG/ML Vaginal Cream Terconazole 0.4 % Terconaz ole 0.4 % 08/05/2020 12:00:00 AM EDT active Terconaz ole 0.4 % eCW1 ([facility]) terconazole 4 MG/ML Vaginal Cream Terconazole 0.4 % Terconaz ole 0.4 % 08/05/2020 12:00:00 AM EDT active Terconaz ole 0.4 % eCW1 ([facility]) terconazole 4 MG/ML Vaginal Cream Terconazole 0.4 % Terconaz ole 0.4 % 08/05/2020 12:00:00 AM EDT suspended Terco nazole 0.4 % eCW1 ([facility]) terconazole 4 MG/ML Vaginal Cream Terconazole 0.4 % Terconaz ole 0.4 % 08/05/2020 12:00:00 AM EDT active Terconaz ole 0.4 % eCW1 ([facility]) terconazole 4 MG/ML Vaginal Cream Terconazole 0.4 % Terconaz ole 0.4 % 08/05/2020 12:00:00 AM EDT active Terconaz ole 0.4 % eCW1 ([facility]) terconazole 4 MG/ML Vaginal Cream Terconazole 0.4 % Terconaz ole 0.4 % 08/05/2020 12:00:00 AM EDT active Terconaz ole 0.4 % eCW1 ([facility]) terconazole 4 MG/ML Vaginal Cream Terconazole 0.4 % Terconaz ole 0.4 % 08/05/2020 12:00:00 AM EDT active Terconaz ole 0.4 % eCW1 ([facility]) terconazole 4 MG/ML Vaginal Cream Terconazole 0.4 % Terconaz ole 0.4 % 08/05/2020 12:00:00 AM EDT suspended Terco nazole 0.4 % eCW1 ([facility]) terconazole 4 MG/ML Vaginal Cream Terconazole 0.4 % Terconaz ole 0.4 % 08/05/2020 12:00:00 AM EDT suspended Terco nazole 0.4 % eCW1 ([facility]) terconazole 4 MG/ML Vaginal Cream Terconazole 0.4 % Terconaz ole 0.4 % 08/05/2020 12:00:00 AM EDT active Terconaz ole 0.4 % eCW1 ([facility]) Zolpidem tartrate 10 MG Oral Tablet zolpidem 10 mg tablet zo lpidem 10 mg tablet completed zolpidem tartr ate 10 MG Oral Tablet FLO ([facility]) Sulfamethoxazole 800 MG / Trimethoprim 1 60 MG Oral Tablet sulfamethoxazole 800 mg-trimethoprim 160 mg tablet TAKE ONE TABLET BY MOUTH TWICE A DAY FOR 5 DAYS FOR URINARY TRACT INFECTION sulfamethoxazole 800 mg-trimethoprim 160 mg tablet TAKE ONE TABLET BY MOUTH TWICE A DAY FOR 5 DAYS FOR URINARY TRACT INFECTION completed sulfamethoxazole 800 M G / trimethoprim 160 MG Oral Tablet FLO ([facility]) Fluconazole 150 MG Oral Tablet fluconazo le 150 mg tablet TAKE ONE TABLET BY MOUTH TODAY IF SYMPTOMS NOT IMPROVED TAKE AN ADDITIONAL TABLET 72 HOURS LATER fluconazole 150 mg tablet TAKE ONE TABLET BY MOUTH TODAY IF SYMPTOMS NOT IMPROVED TAKE AN ADDITIONAL TABLET 72 HOURS LATER completed fluconazole 150 MG Oral Tablet FLO ([facility]) Cephalexin 500 MG Oral Capsule cephalexin 500 mg capsu le cephalexin 500 mg capsule completed cephalexin 500 MG Oral Capsule FLO ([facility]) Insurance Providers Payer name Policy type / Coverage type Policy ID Covered alliance party ID Covered alliance party's relationship to freitas Policy Freitas Plan Information D Managed Care [facility] [id number] S [id number] Medicaid Dental S [id number] S [id number] D Managed Care [facility] P [id number] S [id number] Medicaid S [id number] S [id number] [facility] [id number] SP [id number] Managed Care [facility] Community Plan P [id number] S [id number] [facility] Commercial Insurance Co. [id number] Self [id number] [facility](MCA[facility]) O [id number] S [id number] MEDICAID M [id number] S [id number] Managed Care - [facility] Community Plan S [id number] S [id number] MEDICAID [id number] SP [id number] MEDICAID [id number] SP [id number] SELF PAY ONLY [id number] SP [id number] Self Pay P [id number] S [id number] Medicaid S [id number] S [id number] MEDICAID [id number] SP [id number] Self Pay P UNAVAILABLE M UNAVAILA BLE Medicaid Dental S [id number] S [id number] [facility] [id number] Self Pay P [id number] M [id number] [facility] Health Maintenance Organization (HMO) [id number] Self SELF PAY UNAVAILABLE SP UNAVAILA BLE D [facility] Care [facility] P [id number] S [id number] [employer]UE [employer] PLAN [id number] SP [id number] O BLUE [id number] SP [id number] O BLUE [id number] SP [id number] [facility] COMMUNITY PLAN [facility] [id number] SP [id number] [facility] COMMUNITY PLAN [facility] [id number] SP [id number] SELF PAY ONLY UNK SP UNK [id number] [id number] SP [id number] [facility] COMMUNITY PLAN XIX [id number] 18 [id number] [facility] COMMUNITY PLAN XIX -I/P [id number] 18 [id number] [facility] Care [facility] Community Plan P [id number] S [id number] Problems, Conditions, and Diagnoses Code Display Name Description Problem Type Effective Dates Data Source(s) O730 Retained placenta without hemorrhage Retained pl acenta without hemorrhage Diagnosis 11/11/2019 05:00:00 PM EDT [facility] Z34.80 care Supervision of other normal P serafin 06/10/2020 12:00:00 AM EDT eCW1 ([facility]) [id number] Finding of body region Finding of Body Region Problem 03/31/2019 12:00:00 AM EST - 01/01/2020 12:00:00 AM ALCIDES ROSSI ([facility]) 660829215 Finding of pattern of menstrual cycle Fi nding of Pattern of Menstrual Cycle Problem 03/31/2019 12:00:00 AM EST - 01/01/2020 12:00:00 AM ALCIDES FLO ([facility]) [id number] detection examination Detect ion Examination Problem 03/31/2019 12:00:00 AM EST - 01/01/2020 12:00:00 AM PRINCE ROSSI ([facility]) 30507436 Urinary tract infectious disease Urinary Tract I nfectious Disease Problem 02/18/2019 12:00:00 AM EST - 01/01/2020 12:00:00 AM PRINCE ROSSI ([facility]) [id number] Bessy infection of genital region Cand pam Infection of Genital Region Problem 02/13/2019 12:00:00 AM EST - 01/01/2020 12:00:00 AM ALCIDES FLO ([facility]) [id number] Dysuria Dysuria Problem 02/13/2019 12:0 0:00 AM EST - 01/01/2020 12:00:00 AM ALCIDES FLO ([facility]) 86520470 Acute vaginitis Acute Vaginitis Problem 9 12:00:00 AM EDT - 01/01/2020 12:00:00 AM ALCIDES FLO ([facility]) [id number] Syphilis test finding Syphilis Test Finding Problem 09/18/2018 12:00:00 AM EDT - 01/01/2020 12:00:00 AM ALCIDES FLO ([facility]) [id number] Clinical finding Clinical Finding Problem 019 12:00:00 AM EDT - 01/01/2020 12:00:00 AM ALCIDES FLO ([facility]) 35713578 Cannabis abuse Cannabis Abuse Problem 07/18/2018 12:00:00 AM EDT - 01/01/2020 12:00:00 AM ALCIDES FLO ([facility]) Surgeries/Procedures Procedure Description Date Indications Data Source(s) NONSTRESS TEST 12/29/2020 12:00:00 AM EST eCW1 ([facility]) NONSTRESS TEST 12/16/2020 12:00:00 AM EDT eCW1 ([facility]) NONSTRESS TEST 12/10/2020 12:00:00 AM EDT eCW1 ([facility]) Inj: RhoGAM 300mcg/1.5mL IM Rho D Immune Globulin Human 11/26/2020 12:00:00 AM EDT eCW1 ([facility]) Results ID Date Data Source [id number] 08/01/2020 12:00:00 AM EDT [facility] Name Value Range Interpretation Code Description Data Madhavi rce(s) Supporting Document(s) SARS-CoV2 Rapid Antigen Negative [facility] This lab was ordered by [facility] and reported by [facility]. ID Date Data Source [id number] 02/23/2020 12:00:00 AM EST [facility] Name Value Range Interpretation Code Description Data Madhavi rce(s) Supporting Document(s) SARS coronavirus 2 RNA [Presence] in Res piratory specimen by SHEYLA with probe detection POSITIVE [facility] and reported by [facility]. ID Date Data Source [id number] 02/23/2020 12:00:00 AM EST [facility] Name Value Range Interpretation Code Description Data Madhavi rce(s) Supporting Document(s) SARS-CoV2 Rapid Antigen [facility] This lab was ordered by [facility] and reported by [facility]. Procedure Social History Code Duration Value Status Description Data Source(s ) Smoking 01/04/2021 12:00:00 AM EST Never Smoker completed Never S moker eCW1 ([facility]) Smoking 01/04/2021 12:00:00 AM EST Never Smoker completed Never S moker eCW1 ([facility]) Smoking 12/29/2020 12:00:00 AM EST Never Smoker completed Never S moker eCW1 ([facility]) Smoking 12/29/2020 12:00:00 AM EST Never Smoker completed Never S moker eCW1 ([facility]) Smoking 12/13/2020 12:00:00 AM EDT Never Smoker completed Never S moker eCW1 ([facility]) Smoking 12/13/2020 12:00:00 AM EDT Never Smoker completed Never S moker eCW1 ([facility]) Smoking 12/13/2020 12:00:00 AM EDT Never Smoker completed Never S moker eCW1 ([facility]) Smoking 11/26/2020 12:00:00 AM EDT Never Smoker completed Never S moker eCW1 ([facility]) Smoking 11/26/2020 12:00:00 AM EDT Never Smoker completed Never S moker eCW1 ([facility]) Smoking 11/25/2020 12:00:00 AM EDT Never Smoker completed Never S moker eCW1 ([facility]) Smoking 11/04/2020 12:00:00 AM EDT Never Smoker completed Never S moker eCW1 ([facility]) Smoking 10/13/2020 12:00:00 AM EDT Never Smoker completed Never S moker eCW1 ([facility]) Smoking 09/13/2020 12:00:00 AM EDT Never Smoker completed Never S moker eCW1 ([facility]) Smoking 08/01/2020 12:00:00 AM EDT Never Smoker completed Never S moker eCW1 ([facility]) Smoking 07/08/2020 12:00:00 AM EDT Never Smoker completed Never S moker eCW1 ([facility]) Smoking 06/24/2020 12:00:00 AM EDT Never Smoker completed Never S moker eCW1 ([facility]) Smoking 06/24/2020 12:00:00 AM EDT Never Smoker completed Never S moker eCW1 ([facility]) Vital Signs ID Date Data Source UNK Name Value Range Interpretation Code Description Data Source(s) Body weight 148.8 [lb_av] 148.8 [lb_av] eCW1 ([facility]) Body height 63 [in_i] 63 [in_i] eCW1 ([facility]) Body mass index (BMI) [Ratio] 26.359 kg/m2 26.3 59 kg/m2 eCW1 ([facility]) Systolic blood pressure 128 mm[Hg] 128 mm[Hg] e CW1 ([facility]) Diastolic blood pressure 74 mm[Hg] 74 mm[Hg] eCW1 ([facility]) Body mass index (BMI) [Ratio] 26.394 kg/m2 26.3 94 kg/m2 eCW1 ([facility]) Body weight 149 [lb_av] 149 [lb_av] eCW1 ([facility]) Body weight 67.59 kg 67.59 kg eCW1 ([facility]) Body height 63 [in_i] 63 [in_i] eCW1 ([facility]) Systolic blood pressure 118 mm[Hg] 118 mm[Hg] e CW1 ([facility]) Diastolic blood pressure 70 mm[Hg] 70 mm[Hg] eCW1 ([facility]) Body weight 147.0 [lb_av] 147.0 [lb_av] eCW1 ([facility]) Body height 63 [in_i] 63 [in_i] eCW1 ([facility]) Body mass index (BMI) [Ratio] 26.04 kg/m2 26.04 kg/m2 eCW1 ([facility]) Systolic blood pressure 124 mm[Hg] 124 mm[Hg] e CW1 ([facility]) Diastolic blood pressure 68 mm[Hg] 68 mm[Hg] eCW1 ([facility]) Body weight 146.8 [lb_av] 146.8 [lb_av] eCW1 ([facility]) Body weight 66.59 kg 66.59 kg eCW1 ([facility]) Body height 63 [in_i] 63 [in_i] eCW1 ([facility]) Body mass index (BMI) [Ratio] 26.004 kg/m2 26.0 04 kg/m2 eCW1 ([facility]) Systolic blood pressure 116 mm[Hg] 116 mm[Hg] e CW1 ([facility]) Diastolic blood pressure 70 mm[Hg] 70 mm[Hg] eCW1 ([facility]) Body mass index (BMI) [Ratio] 25.863 kg/m2 25.8 63 kg/m2 eCW1 ([facility]) Body height 63 [in_i] 63 [in_i] eCW1 ([facility]) Body weight 146 [lb_av] 146 [lb_av] eCW1 ([facility]) Body weight 66.22 kg 66.22 kg eCW1 ([facility]) Systolic blood pressure 120 mm[Hg] 120 mm[Hg] e CW1 ([facility]) Diastolic blood pressure 70 mm[Hg] 70 mm[Hg] eCW1 ([facility]) Body weight 140.4 [lb_av] 140.4 [lb_av] eCW1 ([facility]) Body height 63 [in_i] 63 [in_i] eCW1 ([facility]) Body mass index (BMI) [Ratio] 24.871 kg/m2 24.8 71 kg/m2 eCW1 ([facility]) Systolic blood pressure 108 mm[Hg] 108 mm[Hg] e CW1 ([facility]) Diastolic blood pressure 60 mm[Hg] 60 mm[Hg] eCW1 ([facility]) Body weight 131 [lb_av] 131 [lb_av] eCW1 ([facility]) Body weight 59.42 kg 59.42 kg eCW1 ([facility]) Body height 63 [in_i] 63 [in_i] eCW1 ([facility]) Body mass index (BMI) [Ratio] 23.206 kg/m2 23.2 06 kg/m2 eCW1 ([facility]) Systolic blood pressure 120 mm[Hg] 120 mm[Hg] e CW1 ([facility]) Diastolic blood pressure 68 mm[Hg] 68 mm[Hg] eCW1 ([facility]) Body weight 131.4 [lb_av] 131.4 [lb_av] eCW1 ([facility]) Body height 63 [in_i] 63 [in_i] eCW1 ([facility]) Body mass index (BMI) [Ratio] 23.276 kg/m2 23.2 76 kg/m2 eCW1 ([facility]) Systolic blood pressure 120 mm[Hg] 120 mm[Hg] e CW1 ([facility]) Diastolic blood pressure 70 mm[Hg] 70 mm[Hg] eCW1 ([facility]) Body weight 124.2 [lb_av] 124.2 [lb_av] eCW1 ([facility]) Body height 63 [in_i] 63 [in_i] eCW1 ([facility]) Body mass index (BMI) [Ratio] 22.001 kg/m2 22.0 01 kg/m2 eCW1 ([facility]) Systolic blood pressure 120 mm[Hg] 120 mm[Hg] e CW1 ([facility]) Diastolic blood pressure 70 mm[Hg] 70 mm[Hg] eCW1 ([facility]) Body weight 122 [lb_av] 122 [lb_av] eCW1 ([facility]) Body weight 55.34 kg 55.34 kg W1 ([facility]) Body height 63 [in_i] 63 [in_i] eCW1 ([facility]) Body mass index (BMI) [Ratio] 21.611 kg/m2 21.6 11 kg/m2 eCW1 ([facility]) Systolic blood pressure 110 mm[Hg] 110 mm[Hg] e CW1 ([facility]) Diastolic blood pressure 76 mm[Hg] 76 mm[Hg] eCW1 ([facility]) Body weight 124.4 [lb_av] 124.4 [lb_av] eCW1 ([facility]) Body weight 56.43 kg 56.43 kg eCW1 ([facility]) Body height 63 [in_i] 63 [in_i] eCW1 ([facility]) Body mass index (BMI) [Ratio] 22.036 kg/m2 22.0 36 kg/m2 eCW1 ([facility]) Systolic blood pressure 118 mm[Hg] 118 mm[Hg] e CW1 ([facility]) Diastolic blood pressure 72 mm[Hg] 72 mm[Hg] eCW1 ([facility]) Body mass index (BMI) [Ratio] 20.903 kg/m2 20.9 03 kg/m2 eCW1 ([facility]) Body weight 118 [lb_av] 118 [lb_av] eCW1 ([facility]) Systolic blood pressure 122 mm[Hg] 122 mm[Hg] e CW1 ([facility]) Body weight 53.52 kg 53.52 kg eCW1 ([facility]) Body height 63 [in_i] 63 [in_i] eCW1 ([facility]) Diastolic blood pressure 70 mm[Hg] 70 mm[Hg] eCW1 ([facility]) Body height 63 [in_i] 63 [in_i] FLO ([facility]) Diastolic blood pressure 73 mm[Hg] 73 mm[Hg] FLO ([facility]) Body mass index (BMI) [Ratio] 21.6 kg/m2 21.6 k g/m2 FLO ([facility]) Systolic blood pressure 119 mm[Hg] 119 mm[Hg] A THENA ([facility]) Body weight 1954 [oz_av] 1954 [oz_av] FLO ([facility]) ID Date Data Source [id number] 11/18/2019 07:39:36 AM EDT [facility] Name Value Range Interpretation Code Description Data Source(s) WEIGHT RECORDED 141.00 pounds 141.00 pounds [facility] Height 64 Inches 064 Inches [facility] Patient Treatment Plan of Care Planned Activity Planned Date Details Description Data Source (s) terconazole 4 MG/ML Vaginal Cream 08/05/2020 12:00:00 AM EDT eCW1 ([facility]) terconazole 4 MG/ML Vaginal Cream 08/05/2020 12:00:00 AM EDT eCW1 ([facility]) terconazole 4 MG/ML Vaginal Cream 08/05/2020 12:00:00 AM EDT eCW1 ([facility]) Zolpidem tartrate 10 MG Oral Tablet FLO ([facility]) Sulfamethoxazole 800 MG / Trimethoprim 160 MG Oral Tablet FLO ([facility]) Fluconazole 150 MG Oral Tablet FLO ([facility]) Cephalexin 500 MG Oral Capsule FLO ([facility])
--- OUTSIDE RECORDS SUMMARY | 2021-01-10 07:56 | CCD ---
Author Author [facility] Organization [facility] Address Unknown Phone Unavailable Care Team Providers Care Ship'S Carpenter Name Role Phone Tanya Baker Unavailable PROBLEMS Type Condition ICD9-CM Code [id number] Code Onset Dates Condition S tatus W/U Status Risk SNOMED Code Notes Problem Atopic dermatitis and related condition L20.9 Active confirmed 15937246 Problem Supervision of other normal Z34.80 Ac tive confirm [id number] Problem Acne scarring L73.0 Active confirmed [id number] ALLERGIES Allergen (clinical drug ingredient) Drug/Non Drug Allergy do cumented on EMR Reaction Allergy Type Onset Date Status Tree Nuts Anaphylaxis Drug Allergy Active ENCOUNTERS from 1996 to 2020-12-31 Encounter Location Date Provider Diagnosis [facility] [address] [place] [address] [place] [address] Dec, Tanya Baker with po or obstetric history O09.299 and 35 weeks gestation of Z3A.35 IMMUNIZATIONS Vaccine Route Administration Date Status Influenza 6mo & up Fluzone IM Intramuscular Dec 02, 2020 Admi nistered SOCIAL HISTORY Tobacco Use: Social History Observation Description Date Details (start date - stop date) Never Smoker Sex Assigned At : Social History Observation Description Sex Assigned At Unknown Domestic Violence: Question Answer Notes Status: No history of domest ic violence Tobacco Use: Question Answer Notes Are you a: never smoker Are you a: never smoker REASON FOR REFERRAL No Information VITAL SIGNS Weight 149 lbs Dec, Weight-kg 67.59 kg Dec, Height 63 in Dec, BMI 26.394 kg/m2 Dec, Blood pressure systolic 118 mm Hg Dec, Blood pressure diastolic 70 mm Hg Dec, MEDICATIONS Medication SIG (Take, Route, Frequency, Duration) Notes Start Da te End Date Status 27-1 MG 1 tablet Orally Once a day for 30 day(s) Active Terconazole 0.4 % 1 applicatorful at bedtime Vaginal Once a day for 7 day(s) Jul, Active PROCEDURES from 1996 to 2020-12-31 Procedure Date Ordered Result Body Site non-stress test 2020-12-29 N/A RESULTS No Results REASON FOR VISIT 1 wk pn/nst per [place] MEDICAL (GENERAL) HISTORY Type Description Date Surgical History No know Surgical history Goals Section No Information Health Concerns No Information MEDICAL EQUIPMENT No Information MENTAL STATUS No Information FUNCTIONAL STATUS No Information ASSESSMENTS Encounter Date Diagnosis Assessment Notes Treatment Notes Treatm ent Clinical Notes Dec, with poor obstetric history (ICD-10 - O09.299) Dec, 35 weeks gestation of (ICD-10 - Z3A.35 ) PLAN OF TREATMENT Next Appt Details 1 Week Reason:- COB appt with testing [facility]-01-04 03:00:00 PM, [address] [facility], , [place], [address], Follow Up:1 Week- COB appt with testing Insurance Providers Payer Name Payer Address Payer Phone Insured Name Patient Relati onship to Insured Coverage Start Date Coverage End Date [facility] PLAN [facility] [address] [facility] [phone] NIKO PEREIRA self
--- OUTSIDE RECORDS SUMMARY | 2021-01-10 07:56 | CCD ---
Author Author [facility] Organization [facility] Address Unknown Phone Unavailable Care Team Providers Care Retail Support Associate Name Role Phone Delaney Almodovar Unavailable PROBLEMS Type Condition ICD9-CM Code [id number] Code Onset Dates Condition S tatus W/U Status Risk SNOMED Code Notes Problem Atopic dermatitis and related condition L20.9 Active confirmed 51920427 Problem Supervision of other normal Z34.80 Ac tive confirm [id number] Problem Acne scarring L73.0 Active confirmed 507016 000 ALLERGIES Allergen (clinical drug ingredient) Drug/Non Drug Allergy do cumented on EMR Reaction Allergy Type Onset Date Status Tree Nuts Anaphylaxis Drug Allergy Active ENCOUNTERS from 1996 to 2020-12-14 Encounter Location Date Provider Diagnosis [facility] [address] [place] [address] [place] [address] Nov, Delaney Almodovar History of stillbirt h in patient in third trimester, antepartum O09.293 ; History of IUFD Z87.59 and 33 weeks gestation of Z3A.33 IMMUNIZATIONS Vaccine Route Administration Date Status RHo D Immune Globulin 300mcg/1.5mL RhoGAM IM Intramuscular Nov Administered Influenza 6mo & up Fluzone IM Intramuscular [...] FOR REFERRAL No Information VITAL SIGNS Weight 146.8 lbs Nov, Weight-kg 66.59 kg Nov, Height 63 in Nov, BMI 26.004 kg/m2 Nov, Blood pressure systolic 116 mm Hg Nov, Blood pressure diastolic 70 mm Hg Nov, MEDICATIONS Medication SIG (Take, Route, Frequency, Duration) Notes Start Da te End Date Status 27-1 MG 1 tablet Orally Once a day Active Terconazole 0.4 % 1 applicatorful at bedtime Vaginal Once a day for 7 day(s) Jul, Active PROCEDURES from 1996 to 2020-12-14 Procedure Date Ordered Result Body Site non-stress test 2020-12-10 N/A RESULTS No Results REASON FOR VISIT 1 wk pn nst MEDICAL (GENERAL) HISTORY Type Description Date Surgical History No know Surgical history Goals Section No Information Health Concerns No Information MEDICAL EQUIPMENT No Information MENTAL STATUS No Information FUNCTIONAL STATUS No Information ASSESSMENTS Encounter Date Diagnosis Assessment Notes Treatment Notes Treatm ent Clinical Notes Nov, History of stillbirth in pre gnant patient in third trimester, antepartum (ICD-10 - O09.293) Nov, History of IUFD (ICD-10 - Z87.59) Nov, 33 weeks gestation of (ICD-10 - Z3A.33 ) PLAN OF TREATMENT Next Appt Details 1 Week Reason:, NST Provider Name:Roberta Ray, 2020-12-16 08:40:00 AM, [address] [facility], , [place], [address], Follow Up:1 WeekPrenatal, NST Insurance Providers Payer Name Payer Address Payer Phone Insured Name Patient Relati onship to Insured Coverage Start Date Coverage End Date [facility] COMMUNITY PLAN [facility] [address] [facility] [phone] NIKO PEREIRA self
--- OUTSIDE RECORDS SUMMARY | 2021-01-10 07:56 | CCD ---
Author Author [facility] Organization [facility] Address Unknown Phone Unavailable Care Team Providers Care Med Spa Manager Name Role Phone Jayshree Jefferson Unavailable PROBLEMS Type Condition ICD9-CM Code [id number] Code Onset Dates Condition S tatus W/U Status Risk SNOMED Code Notes Problem Atopic dermatitis and related condition L20.9 Active confirmed 88996757 Problem Supervision of other normal Z34.80 Ac tive confirm 978342593 Problem Acne scarring L73.0 Active confirmed 107965 000 ALLERGIES Allergen (clinical drug ingredient) Drug/Non Drug Allergy do cumented on EMR Reaction Allergy Type Onset Date Status tree nuts Anaphylaxis Non Drug Allergy Active ENCOUNTERS from 1996 to 2020-11-26 Encounter Location Date Provider Diagnosis [facility] [address] [place] [address] [place] [address] 08 Nov, 2020 Jayshree Jefferson IMMUNIZATIONS No Information SOCIAL HISTORY Tobacco Use: Social History Observation Description Date Details (start date - stop date) Never Smoker Sex Assigned At : Social History Observation Description Sex Assigned At Unknown Domestic Violence: Question Answer Notes Status: No history of domest ic violence Tobacco Use: Question Answer Notes Are you a: never smoker Are you a: never smoker REASON FOR REFERRAL No Information VITAL SIGNS No information MEDICATIONS Medication SIG (Take, Route, Frequency, Duration) Notes Start Da te End Date Status 27-1 MG 1 tablet Orally Once a day Active Terconazole 0.4 % 1 applicatorful at bedtime Vaginal Once a day for 7 day(s) Jul, Active PROCEDURES No Information RESULTS No Results REASON FOR VISIT appt MEDICAL (GENERAL) HISTORY Type Description Date Surgical History No know Surgical history Goals Section No Information Health Concerns No Information MEDICAL EQUIPMENT No Information MENTAL STATUS No Information FUNCTIONAL STATUS No Information ASSESSMENTS No Information PLAN OF TREATMENT Medication Medication Name Sig Start Date Stop Date Terconazole 0.4 % 1 applicatorful at bedtime Vaginal Once a day for 7 day(s) Jul, Next Appt Details Provider Name:Delaney Almodovar, 2020-11- 4 09:20:00 AM, [address] [facility], , [place], [address], Insurance Providers Payer Name Payer Address Payer Phone Insured Name Patient Relati onship to Insured Coverage Start Date Coverage End Date ON LICENSE OF [facility] COMMUNITY PLAN [facility] [address] [facility] [phone] NIKO PEREIRA self
--- OUTSIDE RECORDS SUMMARY | 2021-01-10 07:56 | CCD ---
Author Author [facility] Organization [facility] Address Unknown Phone Unavailable Care Team Providers Care Occ Therapist Name Role Phone Delaney Almodovar Unavailable PROBLEMS Type Condition ICD9-CM Code [id number] Code Onset Dates Condition S tatus W/U Status Risk SNOMED Code Notes Problem Atopic dermatitis and related condition L20.9 Active confirmed [id number] Problem Supervision of other normal Z34.80 Ac tive confirm 672820665 Problem Acne scarring L73.0 Active confirmed 530248 000 ALLERGIES Allergen (clinical drug ingredient) Drug/Non Drug Allergy do cumented on EMR Reaction Allergy Type Onset Date Status Tree Nuts Anaphylaxis Drug Allergy Active ENCOUNTERS from 1996 to 2020-12-13 Encounter Location Date Provider Diagnosis [facility] [address] [place] [address] [place] [address] Nov, Delaney Almodovar IMMUNIZATIONS Vaccine Route Administration Date Status RHo [...] Information ASSESSMENTS No Information PLAN OF TREATMENT Next Appt Details Provider Name:Roberta Ray, 2020-12-16 08:40:00 AM, [address] [facility], , [place], [address], Insurance Providers Payer Name Payer Address Payer Phone Insured Name Patient Relati onship to Insured Coverage Start Date Coverage End Date [facility] COMMUNITY PLAN [facility] [address] [facility] [phone] NIKO PEREIRA self
--- OUTSIDE RECORDS SUMMARY | 2021-01-10 07:56 | CCD ---
Author Author [facility] Organization [facility] Address Unknown Phone Unavailable Care Team Providers Care Oxyhydrogen Welder Name Role Phone Roberta Ray Unavailable PROBLEMS Type Condition ICD9-CM Code IIP52-VO Code Onset Dates Condition S tatus W/U Status Risk SNOMED Code Notes Problem Atopic dermatitis and related condition L20.9 Active confirmed 48452067 Problem Supervision of other normal Z34.80 Ac tive confirm 453596184 Problem Acne scarring L73.0 Active confirmed 263393 000 ALLERGIES Allergen (clinical drug ingredient) Drug/Non Drug Allergy do cumented on EMR Reaction Allergy Type Onset Date Status Tree Nuts Anaphylaxis Drug Allergy Active ENCOUNTERS from 1996 to 2020-12-16 Encounter Location Date Provider Diagnosis [facility] [address] [place] [address] [place] [address] Nov, Roberta Ray IMMUNIZATIONS Vaccine Route Administration Date Status RHo [...] Information RESULTS No Results REASON FOR VISIT 1 WK PN APPT MEDICAL (GENERAL) HISTORY Type Description Date Surgical History No know Surgical history Goals Section No Information Health Concerns No Information MEDICAL EQUIPMENT No Information MENTAL STATUS No Information FUNCTIONAL STATUS No Information ASSESSMENTS No Information PLAN OF TREATMENT Next Appt Details Provider Name:Roberta Ray, 2020-12-22 08:00:00 AM, [address] [facility], , [place], [address], Insurance Providers Payer Name Payer Address Payer Phone Insured Name Patient Relati onship to Insured Coverage Start Date Coverage End Date [facility] COMMUNITY PLAN [facility] [address] [facility] [phone] NIKO PEREIRA self
--- OUTSIDE RECORDS SUMMARY | 2021-01-10 07:56 | CCD ---
Author Author [facility] Organization [facility] Address Unknown Phone Unavailable Care Team Providers Care Taproom Attendant Name Role Phone Roberta Ray Unavailable PROBLEMS Type Condition ICD9-CM Code [id number] Code Onset Dates Condition S tatus W/U Status Risk SNOMED Code Notes Problem Atopic dermatitis and related condition L20.9 Active confirmed 43934854 Problem Supervision of other normal Z34.80 Ac tive confirm [id number] Problem Acne scarring L73.0 Active confirmed [id number] ALLERGIES Allergen (clinical drug ingredient) Drug/Non Drug Allergy do cumented on EMR Reaction Allergy Type Onset Date Status tree nuts Anaphylaxis Non Drug Allergy Active ENCOUNTERS from 1996 to 2020-11-25 Encounter Location Date Provider Diagnosis [facility] [address] [place] [address] [place] [address] Oct, Roberta Ray History of stillbirt h in patient in third trimester, antepartum O09.293 and 28 weeks gestation of Z3A.28 IMMUNIZATIONS No Information SOCIAL HISTORY Tobacco Use: [...] FOR REFERRAL No Information VITAL SIGNS Weight 140.4 lbs Oct, Height 63 in Oct, BMI 24.871 kg/m2 Oct, Blood pressure systolic 108 mm Hg Oct, Blood pressure diastolic 60 mm Hg Oct, MEDICATIONS Medication SIG (Take, Route, Frequency, Duration) Notes Start Da te End Date Status 27-1 MG 1 tablet Orally Once a day Active Terconazole 0.4 % 1 applicatorful at bedtime Vaginal Once a day for 7 day(s) Jul, Not-Taking PROCEDURES No Information RESULTS No Results REASON FOR VISIT 4 wk pn MEDICAL (GENERAL) HISTORY Type Description Date Surgical History No know Surgical history Goals Section No Information Health Concerns No Information MEDICAL EQUIPMENT No Information MENTAL STATUS No Information FUNCTIONAL STATUS No Information ASSESSMENTS Encounter Date Diagnosis Assessment Notes Treatment Notes Treatm ent Clinical Notes Oct, History of stillbirth in pre gnant patient in third trimester, antepartum (ICD-10 - O09.293) Oct, 28 weeks gestation of (ICD-10 - Z3A.28 ) PLAN OF TREATMENT Treatment Notes Test Name Order Date WWBC OBS LIMITED 2020-11-10 Next Appt Details 2 Weeks Reason:COB Provider Name:Jayshree Jefferson, 2020-11-26 0 2:40:00 PM, [address] [facility], , [place], [address], Follow Up:2 WeeksCOB Insurance Providers Payer Name Payer Address Payer Phone Insured Name Patient Relati onship to Insured Coverage Start Date Coverage End Date [facility] [place] [address] [facility] [phone] NIKO PEREIRA self
--- OUTSIDE RECORDS SUMMARY | 2021-01-10 07:56 | CCD ---
Author Author [facility] Organization [facility] [facility] Address Unknown Phone Unavailable Care Team Providers Care Straightener And Aligner Name Role Phone Tanya Baker Unavailable PROBLEMS Type Condition ICD9-CM Code [id number] Code Onset Dates Condition S tatus W/U Status Risk SNOMED Code Notes Problem Atopic dermatitis and related condition L20.9 Active confirmed [id number] Problem Supervision of other normal Z34.80 Ac tive confirm [id number] Problem Acne scarring L73.0 Active confirmed [id number] ALLERGIES Allergen (clinical drug ingredient) Drug/Non Drug Allergy do cumented on EMR Reaction Allergy Type Onset Date Status tree nuts Anaphylaxis Non Drug Allergy Active ENCOUNTERS from 1996 to 2020-10-15 Encounter Location Date Provider Diagnosis [facility] [address] [place] [address] [place] [address] Sep, Tanya Rodríguezam IMMUNIZATIONS No Information SOCIAL HISTORY Tobacco Use: [...] Notes Start Da te End Date Status Terconazole 0.4 % 1 applicatorful at bedtime Vaginal Once a day for 7 day(s) Jul, Not-Taking 27-1 MG 1 tablet Orally Once a day Active PROCEDURES No Information RESULTS No Results REASON FOR VISIT massage MEDICAL (GENERAL) HISTORY Type Description Date Surgical History No know Surgical history Goals Section No Information Health Concerns No Information MEDICAL EQUIPMENT No Information MENTAL STATUS No Information FUNCTIONAL STATUS No Information ASSESSMENTS No Information PLAN OF TREATMENT Next Appt Details Provider Name:Roberta Ray, 2020-11-10 10:40:00 AM, [address] [facility], , [place], [address], Insurance Providers Payer Name Payer Address Payer Phone Insured Name Patient Relati onship to Insured Coverage Start Date Coverage End Date [facility] COMMUNITY PLAN [facility] [address] [facility] [phone] NIKO PEREIRA self
--- OUTSIDE RECORDS SUMMARY | 2021-01-10 07:56 | CCD ---
Author Author [facility] Organization [facility] Address Unknown Phone Unavailable Care Team Providers Care Produce Department Manager Name Role Phone Jayshree Jefferson Unavailable PROBLEMS Type Condition ICD9-CM Code [id number] Code Onset Dates Condition S tatus W/U Status Risk SNOMED Code Notes Problem Atopic dermatitis and related condition L20.9 Active confirmed 30138050 Problem Supervision of other normal Z34.80 Ac tive confirm [id number] Problem Acne scarring L73.0 Active confirmed [id number] ALLERGIES Allergen (clinical drug ingredient) Drug/Non Drug Allergy do cumented on EMR Reaction Allergy Type Onset Date Status tree nuts Anaphylaxis Non Drug Allergy Active ENCOUNTERS from 1996 to 2020-11-29 Encounter Location Date Provider Diagnosis [facility] [address] [place] [address] [place] [address] Nov, Jayshree Jefferson High risk due to history of previous obstetrical problem in third trimester O09.293 ; 31 weeks gestation of Z3A.31 and Candidiasis of vagina B37.3 IMMUNIZATIONS Vaccine Route Administration Date Status RHo D Immune Globulin 300mcg/1.5mL RhoGAM IM Intramuscular Nov Administered SOCIAL HISTORY Tobacco Use: Social History Observation [...] FOR REFERRAL No Information VITAL SIGNS Weight 146 lbs Nov, Weight-kg 66.22 kg Nov, Height 63 in Nov, BMI 25.863 kg/m2 Nov, Blood pressure systolic 120 mm Hg Nov, Blood pressure diastolic 70 mm Hg Nov, MEDICATIONS Medication SIG (Take, Route, Frequency, Duration) Notes Start Da te End Date Status 27-1 MG 1 tablet Orally Once a day Active Terconazole 0.4 % 1 applicatorful at bedtime Vaginal Once a day for 7 day(s) Jul, Active PROCEDURES from 1996 to 2020-11-29 Procedure Date Ordered Result Body Site Inj: RhoGAM 300mcg/1.5mL IM Rho D Immune Globulin Human N/A RESULTS No Results REASON FOR VISIT 2 wk pn MEDICAL (GENERAL) HISTORY Type Description Date Surgical History No know Surgical history Goals Section No Information Health Concerns No Information MEDICAL EQUIPMENT No Information MENTAL STATUS No Information FUNCTIONAL STATUS No Information ASSESSMENTS Encounter Date Diagnosis Assessment Notes Treatment Notes Treatm ent Clinical Notes Nov, High risk due to h istory of previous obstetrical problem in third trimester (ICD-10 - O09.293) Nov, 31 weeks gestation of (ICD-10 - Z3A.31 ) Nov, Candidiasis of vagina (ICD-10 - B37.3) PLAN OF TREATMENT Medication Medication Name Sig Start Date Stop Date Terconazole 0.4 % 1 applicatorful at bedtime Vaginal Once a day for 7 day(s) Jul, Treatment Notes Test Name Order Date WWBC OBS FOLLOW UP OR REPEAT 2020-11-26 Next Appt Details 1 Week Reason: Provider Name:Delaney Almodovar, 2020-11-19 4 09:20:00 AM, [address] [facility], , [place], [address], Insurance Providers Payer Name Payer Address Payer Phone Insured Name Patient Relati onship to Insured Coverage Start Date Coverage End Date [facility] [address] [facility] [phone] NIKO PEREIRA self
--- OUTSIDE RECORDS SUMMARY | 2021-01-10 07:56 | CCD ---
Author Author [facility] Organization [facility] Address Unknown Phone Unavailable Care Team Providers Care Thermal Molder Name Role Phone Roberta Ray Unavailable PROBLEMS Type Condition ICD9-CM Code [id number] Code Onset Dates Condition S tatus W/U Status Risk SNOMED Code Notes Problem Atopic dermatitis and related condition L20.9 Active confirmed [id number] Problem Supervision of other normal Z34.80 Ac tive confirm 860769680 Problem Acne scarring L73.0 Active confirmed 408359 000 ALLERGIES Allergen (clinical drug ingredient) Drug/Non Drug Allergy do cumented on EMR Reaction Allergy Type Onset Date Status tree nuts Anaphylaxis Non Drug Allergy Active ENCOUNTERS from 1996 to 2020-11-08 Encounter Location Date Provider Diagnosis [facility] [address] [place] [address] [place] [address] Sep, Roberta Ray History of stillbirt h in patient in second trimester, antepartum O09.292 and 24 weeks gestation of Z3A.24 IMMUNIZATIONS No Information SOCIAL HISTORY Tobacco Use: [...] FOR REFERRAL No Information VITAL SIGNS Weight 131 lbs Sep, Weight-kg 59.42 kg Sep, Height 63 in Sep, BMI 23.206 kg/m2 Sep, Blood pressure systolic 120 mm Hg Sep, Blood pressure diastolic 68 mm Hg Sep, MEDICATIONS Medication SIG (Take, Route, Frequency, Duration) [...] Notes Treatment Notes Treatm ent Clinical Notes Sep, History of stillbirth in pre gnant patient in second trimester, antepartum (ICD-10 - O09.292) Sep, 24 weeks gestation of (ICD-10 - Z3A.24 ) PLAN OF TREATMENT Treatment Notes Test Name Order Date CBC - Complete Blood Count 2020-10-13 Type and Screen (D Rh Antibody Screen) 2020-10-13 Glucose Challenge Test 1 Hour 2020-10-13 AB SCREEN (INDIRECT HUAN)GEL Antibody Screen 2020-09 RH ONLY RHOGAM 2020-10-13 RHOGAM 2020-10-13 Next Appt Details 4 Weeks Reason:COB Provider Name:Roberta Ray, 2020-11-10 10:40:00 AM, [address] [facility], , [place], [address], Follow Up:4 WeeksCOB Insurance Providers Payer Name Payer Address Payer Phone Insured Name Patient Relati onship to Insured Coverage Start Date Coverage End Date [facility] PLAN [facility] [address] [facility] [phone] NIKO PEREIRA self
--- OUTSIDE RECORDS SUMMARY | 2021-01-10 07:56 | CCD ---
Author Author [facility] Organization [facility] Address Unknown Phone Unavailable Care Team Providers Care Hydraulic Boom Operator Name Role Phone Roberta Ray Unavailable PROBLEMS Type Condition ICD9-CM Code [id number] Code Onset Dates Condition S tatus W/U Status Risk SNOMED Code Notes Problem Atopic dermatitis and related condition L20.9 Active confirmed 08693893 Problem Supervision of other normal Z34.80 Ac tive confirm 619653496 Problem Acne scarring L73.0 Active confirmed 784872 000 ALLERGIES Allergen (clinical drug ingredient) Drug/Non Drug Allergy do cumented on EMR Reaction Allergy Type Onset Date Status Tree Nuts Anaphylaxis Drug Allergy Active ENCOUNTERS from 1996 to 2021-01-08 Encounter Location Date Provider Diagnosis [facility] [address] [place] [address] [place] [address] Nov, Roberta Ray History of stillbirt h in patient in third trimester, antepartum O09.293 and 33 weeks gestation of Z3A.33 IMMUNIZATIONS Vaccine Route Administration Date Status Influenza [...] FOR REFERRAL No Information VITAL SIGNS Weight 147.0 lbs Nov, Height 63 in Nov, BMI 26.04 kg/m2 Nov, Blood pressure systolic 124 mm Hg Nov, Blood pressure diastolic 68 mm Hg Nov, MEDICATIONS Medication SIG (Take, Route, Frequency, Duration) Notes Start Da te End Date Status 27-1 MG 1 tablet Orally Once a day for 30 day(s) Active Terconazole 0.4 % 1 applicatorful at bedtime Vaginal Once a day for 7 day(s) Jul, Active PROCEDURES from 1996 to 2021-01-08 Procedure Date Ordered Result Body Site non-stress test 2020-12-16 N/A RESULTS No Results REASON FOR VISIT 1wkPN/NST Prefers Roberta MEDICAL (GENERAL) HISTORY Type Description Date Surgical History No Surgical history information Goals Section No Information Health Concerns No Information MEDICAL EQUIPMENT No Information MENTAL STATUS No Information FUNCTIONAL STATUS No Information ASSESSMENTS Encounter Date Diagnosis Assessment Notes Treatment Notes Treatm ent Clinical Notes Nov, History of stillbirth in pre gnant patient in third trimester, antepartum (ICD-10 - O09.293) Nov, 33 weeks gestation of (ICD-10 - Z3A.33 ) PLAN OF TREATMENT Medication Medication Name Sig Start Date Stop Date 27-1 MG 1 tablet Orally Once a day for 30 day(s) Next Appt Details 1 Week Reason:COB NST Follow Up:1 WeekCOB NST Insurance Providers Payer Name Payer Address Payer Phone Insured Name Patient Relati onship to Insured Coverage Start Date Coverage End Date [facility] COMMUNITY PLAN [facility] [address] [facility] [phone] NIKO PEREIRA self
--- OUTSIDE RECORDS SUMMARY | 2021-01-10 07:56 | CCD ---
Author Author [facility] Organization [facility] Address Unknown Phone Unavailable Care Team Providers Care Optical Laboratory Mechanic Name Role Phone Tanya Baker Unavailable PROBLEMS Type Condition ICD9-CM Code [id number] Code Onset Dates Condition S tatus W/U Status Risk SNOMED Code Notes Problem Atopic dermatitis and related condition L20.9 Active confirmed [id number] Problem Supervision of other normal Z34.80 Ac tive confirm 302347491 Problem Acne scarring L73.0 Active confirmed 220319 000 ALLERGIES Allergen (clinical drug ingredient) Drug/Non Drug Allergy do cumented on EMR Reaction Allergy Type Onset Date Status Tree Nuts Anaphylaxis Drug Allergy Active ENCOUNTERS from 1996 to 2021-01-03 Encounter Location Date Provider Diagnosis [facility] [address] [place] [address] [place] [address] Dec, Tanyasantos Baker IMMUNIZATIONS Vaccine Route Administration Date Status Influenza [...] Results REASON FOR VISIT 1 WK PN NST MEDICAL (GENERAL) HISTORY Type Description Date Surgical History No know Surgical history Goals Section No Information Health Concerns No Information MEDICAL EQUIPMENT No Information MENTAL STATUS No Information FUNCTIONAL STATUS No Information ASSESSMENTS No Information PLAN OF TREATMENT Next Appt Details Provider Name:Delaney Almodovar, 2020-12- 7 03:00:00 PM, [address] [facility], , [place], [address], Insurance Providers Payer Name Payer Address Payer Phone Insured Name Patient Relati onship to Insured Coverage Start Date Coverage End Date [facility] COMM[facility] [address] [facility] [phone] NIKO PEREIRA self
[2021-01-10] MEDS ORDERED: CARBOPROST TROMETHAMINE 250 MCG/ML AMP IM PRN (08:05)
[2021-01-10] MEDS ORDERED: LIDOCAINE 1% MDV 20ML VIAL INFIL PRN (08:05)
[2021-01-10] MEDS ORDERED: OXYTOCIN DRIP 30 UNITS in IV 1 EA IV PRN (08:05)
[2021-01-10] MEDS ORDERED: METHYLERGONOVINE MALEATE 0.2 MG/ML VIAL (J2210) IM PRN (08:05)
[2021-01-10] MEDS ORDERED: TRANEXAMIC ACID INJection 1,000 MG in NS 100 ML IV PRN (08:05)
[2021-01-10 08:57] LABS: HEMOGLOBIN 10.5 g/dl (12.0-15.5); MEAN CORPUSCULAR HEMOGLOBIN 29.1 pg (27.0-33.0); MEAN CORPUSCULAR HGB CONC 32.8 g/dl (32.0-36.5); MEAN CORPUSCULAR VOLUME 88.6 fl (80.0-96.0); PLATELET COUNT, AUTOMATED 171 10^3/uL (150-450); RED BLOOD COUNT 3.61 10^6/uL (4.00-5.40); WHITE BLOOD COUNT 10.2 10^3/uL (4.0-10.0)
[2021-01-10] MEDS ORDERED: miSOPROStol 50MCG 1/2 TABLET PO SCH (09:00)
--- NOTE | 2021-01-10 09:02 | HPEPDOC ---
Obstetrical History & Physical General Date of Admission Jan 10, 2021 at 07:51 Primary Care Physician: MOE CUEVAS CNM History of Present Illness Kary is a 25-year-old female who is a at 37.3 weeks gestation with an AN of 01/28/21 based off of her LMP and consistent with her first trimester ultrasound. She initiated care at 7 weeks gestation with [facility]. Her has been complicated by a history of a stillbirth at 37.6 weeks gestation. Appears to be related to IUGR given the information that was provided by patient. She also is a daily marijuana user. She presents to labor and delivery for an elective induction of labor due to her history of stillbirth at term and her anxiety associated with this. She reports active movement. She denies leaking of fluid, vaginal bleeding or contractions. Chief Complaint: Other (history of stillbirth) Information Provided By: Patient Age: 25 : 2 Term: 1 Pre-term: 0 Abortions: 0 Livin Care Care: Good Care Dating Final EDC: Jan 28, 2021 Final EDC by: LMP EGA at Admission: 37.3 Antepartum Course Diagnos(e)s History of stillbirth Height (inches): 63 Pre- weight (lbs.): 118 Admission Weight (lbs.): 150 Change in Weight (lbs.): 32 Past Medical History Past Obstetrical History : Past Obstetrical History: Primgravida Date of Delivery: Nov 09, 2019 Gestation: 37.6 Type of Delivery: Spontaneous Vaginal Del. Sex of Infant: Female (4 lbs 9 oz) Complications: Yes (stillbirth (small placenta noted); She labored at home and when she presented to hospital no FHR noted. 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 Marital Status: Single Family situation: Spouse/partner home Psychosocial History: Anxiety * Smoker: non-smoker Alcohol: rarely Abuse Violence Screening Have you been hit/kicked/slapp: No Have you been sexually assault: No Allergies Coded Allergies: No Known Allergies (Unverified , 04/01/19) Medications Scheduled Prenat 115/Iron Fum/Folic/Dss ( 19 Tablet) 1 Each Tablet, 1 TAB PO DAILY Physical Examination Physical Examination GENERAL: Alert and oriented times three. ABDOMEN: Gravid and non-tender to touch. FETUS: Is vertex (VTX) by sterile vaginal examination (SVE), fetus is vertex (VTX) by bedside ultrasound LUNGS: regular rate and comfortable on room air. EXTREMITIES: No edema. No clonus. Vital Signs/I&O Vital Signs Label Value Date Time Patient Temperature 98.8 degrees F 01/10/21816 Temperature Source Temporal 01/10/21816 Pulse 89 01/10/21816 Respiratory Rate 16 bpm 01/10/21816 Blood Pressure Assessment 131/83 (99) 01/10/21816 Source Automatic Cuff (NIBP) Bedside Pulse Oximetry 99 % 01/10/21816 Laboratory Data 24H LABS Laboratory Tests 2 01/10/21 07:55: Serology Scanned Report Hepatitis B Testing 01/10/21 08:44: CBC/BMP Item Value Date Time White Blood Count 10.2 10^3/uL H 01/10/21 08 Red Blood Count 3.61 10^6/uL L 01/10/21843 Hemoglobin 10.5 g/dl L 01/10/21 08 Hematocrit 32.0 % L 01/10/21 08 Mean Corpuscular Volume 88.6 fl 01/10/21 08 Mean Corpuscular Hemoglobin 29.1 pg 01/10/21843 Mean Corpuscular Hemoglobin Concent 32.8 g/dl 01/10/21843 Red Cell Distribution Width 15.3 % H 01/10/21843 Platelet Count 171 10^3/uL 01/10/21 08 Urine Culture: No Growth Pertinent Laboratoy Data Blood Type: A- RBC Antibody Screen: Negative HIV: Negative Hepatitis B: Negative Hepatitis C: Negative Rapid Plasma Reagin: Nonreactive Rubella: Immune Chlamydia/Gonorrhea: Negative Group B Streptococcus: Negative Glucose Tolerance Test: 86 Anatomy Ultrasound Placenta Location: Posterior Normal Anatomy: Yes Placenta Previa: No Other Ultrasounds Growth done 1.5 weeks ago shows cephalic presentation with JAYLEN 12.9 cm and EFW 21%. Vaginal Examination Dilation: None Cervical Consistency: Soft Cervical Position: Posterior Presentation: Cephalic presentation Assessment Heart Rate (FHR): 130 Variability: Moderate Accelerations: Positive Decelerations: None Tocometer Contractions: Yes Frequency: irregular Multi-drug resistant Organism: No history of MDRO Assessment/Plan Assessment IUP at 37.3 weeks gestation GBS negative Elective induction of labor due to history of 37 week IUFD. Category I FHR tracing. Plan Admit to labor and delivery for induction of labor. OOB ad sahara. Diet: regular. Group B Streptococcus (GBS) negative. Labs and intravenous (IV) per unit protocol. Counseled on Cytotec, kaba bulb and IV Pitocin for induction of labor. Anesthesia consult per patient's request. Lactated Ringers (LR): Bolus 800 mL prior to epidural, then at 125 mL/hr. Anticipate cervical ripening. C-S as appropriate. MOE CUEVAS CNM Jan 10, 2021 09:02
--- NOTE | 2021-01-10 15:08 | IPNPDOC ---
Obstetrical Progress Note Date of Service Jan 10, 2021 Subjective Patient reports she is feeling her contractions. Objective Vital Signs Date Time Temp Pulse Resp B/P (MAP) Pulse Ox O2 Delivery O2 Flow Rate FiO2 01/10/21 14:09 85 16 118/84 (95) 01/10/21 13:16 98.7 01/10/21 08:17 99 Room Air Assessment Heart Rate (FHR): 130 Variability: Moderate Accelerations: Positive Decelerations: None Heart Rate Tracing: Category I Tocometer Contractions: Yes Sterile Vaginal Examination Dilation: 2cm (2-3 cm) Effacement (%): other (75%) Station: -2 Cervical Consistency: Soft Cervical Position: Posterior Postion/Presentation: Cephalic presentation Assessment and Plan Age: 25 : 2 Term: 1 Pre-term: 0 Abortions: 0 Livin EGA at Admission: 37.3 Status: Reassuring Group B Streptococcus: Negative Anticipate: Vaginal Delivery Additional Comments IV Pitocin to be started per order. MOE CUEVAS CNM Jan 10, 2021 15:07
[2021-01-10] MEDS ORDERED: OXYTOCIN DRIP 30 UNITS in IV 1 EA IV SCH (15:10)
[2021-01-10] MEDS ORDERED: LR 1,000 ML IV SCH (15:10)
[2021-01-10] MEDS ORDERED: PROMETHAZINE INJ 25 MG/ML VIAL (J2550) IV ONE (21:00)
[2021-01-10] MEDS ORDERED: BUTORPHANOL 2 MG/ML INJ (J0595) IV ONE (21:00)
--- NOTE | 2021-01-10 21:00 | IPNPDOC ---
Obstetrical Progress Note Date of Service Jan 10, 2021 Subjective Patient reports contractions are stronger. Objective Vital Signs Date Time Temp Pulse Resp B/P (MAP) Pulse Ox O2 Delivery O2 Flow Rate FiO2 01/10/21 18:49 66 16 123/83 (96) 01/10/21 17:56 99.0 01/10/21 08:17 99 Room Air Assessment Heart Rate (FHR): 130 Variability: Moderate Accelerations: Positive Decelerations: None Heart Rate Tracing: Category I Tocometer Contractions: Yes Sterile Vaginal Examination Dilation: 4 cm Effacement (%): other (75%) Station: -1 Cervical Consistency: Soft Cervical Position: Middle Postion/Presentation: Cephalic presentation Assessment and Plan Status: Reassuring Group B Streptococcus: Negative Anticipate: Vaginal Delivery Additional Comments IV Pitocin at 8 mu/min. AROM after consent from patient to a moderate amount of clear fluid. MOE CUEVAS CNM Jan 10, 2021 21:00
[2021-01-11 01:38] VITALS: BP 128/82
[2021-01-11] MEDS ORDERED: OXYTOCIN INJ 10 UNITS/ML VIAL (J2590) As Ordered ONE (03:03)
[2021-01-11] MEDS ORDERED: ACETAMINOPHEN TAB 650MG DOSE (2X325MG) PO PRN (03:45)
[2021-01-11] MEDS ORDERED: RHOGAM 300 MCG (1500 IU) INJ (J2790) IM SCH (03:45)
[2021-01-11] MEDS ORDERED: ANUSOL HC CREAM 30GM TOP PRN (03:45)
[2021-01-11] MEDS ORDERED: MEASLES,MUMPS,RUBELLA VACCINE INJ (MMR-II) (90707) SC SCH (03:45)
[2021-01-11] MEDS ORDERED: DOCUSATE SODIUM 100MG CAPSULE PO PRN (03:45)
[2021-01-11] MEDS ORDERED: METHYLERGONOVINE MALEATE 0.2 MG TAB PO PRN (03:45)
[2021-01-11] MEDS ORDERED: ACETAMINOPHEN 500 MG TAB PO PRN (03:45)
[2021-01-11] MEDS ORDERED: IBUPROFEN 600MG TAB PO PRN (03:45)
[2021-01-11] MEDS ORDERED: DIBUCAINE 1% OINTMENT 30GM TOP PRN (03:45)
--- NOTE | 2021-01-11 03:59 | DNPDOC ---
[facility] Delivery Note Delivery Note DATE OF DELIVERY: 01/11/21 at 0255 PREDELIVERY DIAGNOSIS: 37-3/7 weeks' gestation and induction of labor. POST DELIVERY DIAGNOSIS: Delivered. PROCEDURE: Spontaneous vaginal delivery. INDUSTRIAL PSYCHOLOGY TEACHER: Moe Ray CNM ANESTHESIA: none. ESTIMATED BLOOD LOSS: 250 mL. FINDINGS: 5 pounds 11 ounces; 2620 grams; male , Score 9/9, history of a term stillbirth. DELIVERY SUMMARY: Kary is a 25-year-old female who is now a who p resented to labor and delivery for an elective induction of labor at 37.3 weeks gestation due to a history of a full term stillbirth at 37.6 weeks gestation with her last . She had a dose of cytotec and IV Pitocin for induction of labor. She requested IV pain medication to help her cope with contractions. Kary progressed to fully dilated at 0240 and pushed to a living male in the AMEE position with restitution to ROT. The anterior shoulder delivered with ease and the corpus immediately followed. The baby was placed [id number] active and crying. The cord was clamped after pulsation ceased and cut by the FOB. A 3- vessel cord was noted. The placenta delivered intact. Uterine hemostasis was achieved via fundal massage and IM Pitocin. Her IV dislodged during pushing and removed at this time. The vagina, cervix and perineum were inspected and found to have a left vaginal wall laceration extending into the left labia and repaired with a 3.[address]-1. They are naming him Abel and mom plans to breastfeed him. Both mom and baby are in stable condition and all counts of sponges and instruments are correct. MOE RAY CNM Jan 11, 2021 03:59
[2021-01-11 04:01] VITALS: BP 145/93
[2021-01-11] MEDS ORDERED: OXYTOCIN INJ 10 UNITS/ML VIAL (J2590) IM ONE (04:10)
[2021-01-11] MEDS: IBUPROFEN 800 MG TAB PO PRN ×2 (05:54→21:21)
[2021-01-11 06:00] VITALS: BP 137/81
[2021-01-11] MEDS: PRENATAL VITAMINS CHEWABLE TABLET PO SCH (09:00)
[2021-01-11 18:31] VITALS: BP 139/87
[2021-01-12 06:00] VITALS: BP 134/82
[2021-01-12] MEDS: PRENATAL VITAMINS CHEWABLE TABLET PO SCH (07:37)
[2021-01-12] MEDS: IBUPROFEN 800 MG TAB PO PRN ×2 (07:56→17:28)
[2021-01-12 17:57] VITALS: BP 129/63
[2021-01-13] MEDS: IBUPROFEN 800 MG TAB PO PRN ×2 (01:50→10:07)
[2021-01-13 06:00] VITALS: BP 123/72
[2021-01-13] MEDS: PRENATAL VITAMINS CHEWABLE TABLET PO SCH (08:24)
--- NOTE | 2021-01-13 13:16 | IPNPDOC ---
Progress Note Date of Service: Jan 13, 2021 Day#: 2 Progress Note SUBJECT: Status post . She has been ambulating, voiding spontaneously with out issue and tolerating regular diet. Lochia decreasing/minimal. Pain is well- controlled. Denies headache, visual changes, right upper quadrant pain, shortness breath or chest pain. OBJECTIVE: VITAL SIGNS: Within normal limits, afebrile. Alert and oriented times three. Abdomen: Fundus firm at U-2. Soft, NTTP. ASSESSMENT: Status post uncomplicated spontaneous vaginal delivery. Vitals within normal limits, afebrile, hemodynamically stable with no evidence of infection. PLAN: Discharge to home today. Tylenol and Motrin for pain. Routine instructions/precautions reviewed. Routine PP visit in 6 weeks in clinic. VS, I&O, 24H, Fishbone Vital Signs/I&O Vital Signs Date Time Temp Pulse Resp B/P (MAP) Pulse Ox O2 Delivery O2 Flow Rate FiO2 01/13/21 06:00 99.0 75 16 123/72 (89) 99 Room Air ESTEPHANIE ARAGON DO Jan 13, 2021 13:16
== END 2021-01-13 13:45 | disposition home or self-care (01) | DRG 560 ==
LOC: M LDI 07:51 → M OBS 01-11 05:35
PROVIDERS: ADMIT Advanced Practice Midwife; ATTEND Advanced Practice Midwife
PROC: 10E0XZZ Delivery of Products of Conception, External Approach (ICD-10-PCS; principal; 2021-01-10)
PROC: 3E0P7GC Introduction of Other Therapeutic Substance into Female Reproductive, Via Natural or Artificial Opening (ICD-10-PCS; 2021-01-10)
PROC: 10907ZC Drainage of Amniotic Fluid, Therapeutic from Products of Conception, Via Natural or Artificial Opening (ICD-10-PCS; 2021-01-10)
PROC: 0HQ9XZZ Repair Perineum Skin, External Approach (ICD-10-PCS; 2021-01-11)
DX: O99.344 Other mental disorders complicating childbirth (principal); O09.293 Supervision of pregnancy with other poor reproductive or obstetric history, third trimester; O70.0 First degree perineal laceration during delivery; Z3A.37 37 weeks gestation of pregnancy; Z37.0 Single live birth

== ENCOUNTER → 2022-03-23 | Outpatient (REF) | payer OTHER ==
[2022-03-23 16:32] LABS: GC DNA AMPLIFICATION NEGATIVE (NEGATIVE)
== END ==
LOC: M LAB REF 12:50
PROVIDERS: ATTEND Nurse Practitioner Family
DX: N89.8 Other specified noninflammatory disorders of vagina (principal)

== ENCOUNTER → 2022-04-20 | Outpatient (REF) | payer OTHER ==
[2022-04-20 17:44] LABS: BASO # 0.1 10^3/uL (0.0-0.2); BASO % 1.2 % (0.0-1.0); EOS # 0.2 10^3/uL (0.0-0.5); EOS % 2.6 % (0.0-3.0); HEMATOCRIT 44.4 % (36.0-47.0); HEMOGLOBIN 14.2 g/dl (12.0-15.5); LYMPH # 2.2 10^3/uL (1.5-5.0); LYMPH % 36.4 % (24.0-44.0); MEAN CORPUSCULAR HEMOGLOBIN 29.3 pg (27.0-33.0); MEAN CORPUSCULAR VOLUME 91.7 fl (80.0-96.0); MONO # 0.6 10^3/uL (0.0-0.8); MONO % 9.4 % (2.0-8.0); NEUTROPHILS % 50.1 % (36.0-66.0); PLATELET COUNT, AUTOMATED 198 10^3/uL (150-450); RED BLOOD COUNT 4.84 10^6/uL (4.00-5.40); WHITE BLOOD COUNT 6.1 10^3/uL (4.0-10.0)
[2022-04-20 17:47] LABS: HEMOGLOBIN A1c 5.2 % (4.0-6.0)
[2022-04-20 17:53] LABS: ALBUMIN 3.9 G/DL (3.2-5.2); ALKALINE PHOSPHATASE 59 U/L (46-116); ALT/SGPT 15 U/L (7.0-40); AST/SGOT 10 U/L (<34); BILIRUBIN,TOTAL 0.6 MG/DL (0.3-1.2); BLOOD UREA NITROGEN 13 MG/DL (9-23); CALCIUM LEVEL 8.7 MG/DL (8.5-10.1); CARBON DIOXIDE LEVEL 27 MMOL/L (20-31); CHLORIDE LEVEL 108 MMOL/L (98-107); CHOLESTEROL LEVEL 138 MG/DL (<200); CHOLESTEROL RISK RATIO 1.97 (<5); GLOMERULAR FILTRATION RATE > 60.0 (>60); GLUCOSE, FASTING 83 MG/DL (60-100); HDL CHOLESTEROL 69.9 MG/DL (>40); LDL CHOLESTEROL 55.5 MG/DL (<100); NON-HDL-C 68 MG/DL; POTASSIUM SERUM 4.2 MMOL/L (3.5-5.1); SODIUM LEVEL 140 MMOL/L (136-145); TOTAL PROTEIN 6.9 G/DL (5.7-8.2); TRIGLYCERIDES LEVEL 63 MG/DL (<150)
[2022-04-20 17:54] LABS: THYROID STIMULATING HORMONE 0.566 uIU/ML (0.55-4.78); TOTAL 25(OH) VITAMIN D 21.5 NG/ML (20.0-100.0)
== END ==
LOC: M LAB REF 16:55
PROVIDERS: ATTEND Nurse Practitioner Family
DX: E66.3 Overweight (principal); E55.9 Vitamin D deficiency, unspecified; R53.83 Other fatigue

== ENCOUNTER → 2022-04-27 | Outpatient (REF) | payer OTHER ==
[2022-04-27 16:10] LABS: GC DNA AMPLIFICATION NEGATIVE (NEGATIVE)
== END ==
LOC: M LAB REF 14:25
PROVIDERS: ATTEND Nurse Practitioner Family
DX: Z11.3 Encounter for screening for infections with a predominantly sexual mode of transmission (principal); A64 Unspecified sexually transmitted disease

== ENCOUNTER → 2022-07-22 | Outpatient (REF) | payer OTHER | LOC: M LAB REF 10:56 | PROVIDERS: ATTEND Physician Assistant Medical | DX: J02.9 Acute pharyngitis, unspecified (principal) ==

== ENCOUNTER → 2022-08-04 | Outpatient (REF) | payer OTHER ==
[2022-08-07 15:04] LABS: GC DNA AMPLIFICATION NEGATIVE (NEGATIVE)
== END ==
LOC: M LAB REF 12:23
PROVIDERS: ATTEND Nurse Practitioner Family
DX: Z11.3 Encounter for screening for infections with a predominantly sexual mode of transmission (principal); A64 Unspecified sexually transmitted disease

== ENCOUNTER → 2024-09-25 | Outpatient (REF) | payer OTHER ==
[2024-09-25 15:13] LABS: ALT/SGPT 19 U/L (7.0-40); AST/SGOT 23 U/L (<34)
[2024-09-25 15:14] LABS: HCG, SERUM QUALITATIVE NEGATIVE (NEGATIVE)
[2024-09-25 15:30] LABS: ESTIMATED AVERAGE GLUCOSE 100.0 MG/DL (60-110)
== END ==
LOC: M LAB REF 14:49
PROVIDERS: ATTEND Nurse Practitioner Family
DX: R10.11 Right upper quadrant pain (principal); R63.5 Abnormal weight gain